=== PATIENT | female | born 1990 | race Caucasian/White ===

== ENCOUNTER → 2020-05-22 08:22 | Outpatient (CLI) | payer OTHER, SELFPAY ==
[2020-05-22] MEDS: COVID-19 VACC #1, MRNA(MOD) 100 MCG/0.5 ML VIAL IM (08:32)
== END ==
PROVIDERS: Visit Provider Internal Medicine
DX: Z23 Encounter for immunization (principal)
CPT/HCPCS: 0011A; 91301

== ENCOUNTER → 2020-06-19 08:21 | Outpatient (CLI) | payer OTHER, SELFPAY ==
[2020-06-19] MEDS: COVID-19 VACC #2, MRNA(MOD) 100 MCG/0.5 ML VIAL IM (08:28)
== END ==
PROVIDERS: PCP Family Medicine; Visit Provider Internal Medicine
DX: Z23 Encounter for immunization (principal)
CPT/HCPCS: 0012A; 91301

== ENCOUNTER → 2020-08-08 09:13 | Outpatient (CLI) | payer OTHER, SELFPAY ==
--- NOTE | 2020-08-08 09:14 | DI.MRI.S_ITS ---
PROCEDURE: MR HEAD/BRAIN WO/W CON INDICATIONS: Tinnitus, decreased sensation left lower face x3 weeks TECHNIQUE: Noncontrast sagittal T1 spin echo, axial T2 fast spin echo, axial FLAIR, axial gradient echo, axial diffusion and ADC through the brain. After IV contrast administration, 3D T1 fat saturated images were obtained in the axial plane with coronal and sagittal reformatted images generated and reviewed. COMPARISON: None. FINDINGS: Image quality: Excellent. Cranial nerves: No mass or signal abnormality within the posterior fossa brain parenchyma. Cisternal segments of the visualized cranial nerves are normal in appearance. There is no mass within the cerebellopontine angles or internal auditory canals identified. CSF spaces: Ventricles are normal in size and shape. No extra-axial fluid collections. Basal cisterns are patent. Brain: No intracranial bleeds or mass effects. No abnormal intracranial enhancement. Diffusion weighted images show no acute ischemic insults. [place]-white matter interface is intact. Brainstem is normal. Normal intravascular flow voids are present. Skull and face: Calvarial marrow signal is normal. Orbits appear normal. Sinuses: Sinuses and mastoids appear clear. IMPRESSION: Unremarkable MRI of the brain. No finding to explain symptoms. Dictated by: Drake Hull M.D. on 08/08/2020 at 9:52 Approved by: Drake Hull M.D. on 08/08/2020 at 9:55
== END ==
PROVIDERS: PCP Family Medicine; Referring Provider Family Medicine; Visit Provider Family Medicine
DX: H93.19 Tinnitus, unspecified ear (principal); R20.8 Other disturbances of skin sensation
CPT/HCPCS: 70553

== ENCOUNTER → 2021-05-18 10:52 | Outpatient (CLI) | payer OTHER, SELFPAY | PROVIDERS: PCP Family Medicine; Visit Provider Family Medicine | DX: N89.8 Other specified noninflammatory disorders of vagina (principal) | CPT/HCPCS: 87210 ==

== ENCOUNTER → 2021-07-08 08:39 | Outpatient (CLI) | payer OTHER, SELFPAY | PROVIDERS: PCP Family Medicine; Visit Provider Family Medicine | DX: N76.0 Acute vaginitis (principal) | CPT/HCPCS: 87210; 87220 ==

== ENCOUNTER → 2021-07-08 08:59 | Outpatient (CLI) | payer OTHER, SELFPAY ==
[2021-07-08 09:40] LABS: Add Manual Diff / Slide Review NO; Basophils Absolute Auto 0 /uL (0-100); Basophils Percent Auto 0.6 % (0-2); Eosinophils Absolute Auto 100 /uL (0-450); Eosinophils Percent Auto 1.6 % (2-4); Hemoglobin 12.1 g/dL (12.0-16.0); Lymphocytes Absolute Auto 1400 /uL (1100-4500); Lymphocytes Percent Auto 35.7 % (25-40); Mean Corpuscular HGB Conc 33.6 % (30-36); Mean Corpuscular Hemoglobin 30.5 PG (26-34); Mean Corpuscular Volume 90.7 fL (80-100); Monocytes Absolute Auto 300 /uL (0-900); Monocytes Percent Auto 7.5 % (3-14); Neutrophils Absolute Auto 2200 /uL (1500-7000); Neutrophils Percent Auto 54.6 % (50-75); Platelet Count 253 X10^3/uL (150-400); Red Blood Cell Count 3.97 X10^6/uL (4.0-5.2); Red Cell Distribution Width 13.5 % (11.6-14.8)
[2021-07-08 09:55] LABS: Alanine Aminotransferase 11 IU/L (<35); Albumin 4.3 g/dL (3.5-5.0); Albumin Globulin Ratio 1.3 (1.0-2.8); Alkaline Phosphatase 65 U/L (38-126); Aspartate Aminotransferase 21 IU/L (14-36); BUN Creatinine Ratio 16.7 (6-22); Bilirubin Total 0.5 mg/dL (0.2-1.3); Blood Urea Nitrogen 11 mg/dL (7-17); Calcium 9.1 mg/dL (8.4-10.2); Carbon Dioxide 25 mmol/L (22-32); Chloride 106 mmol/L (98-107); Cholesterol 149 mg/dL (140-199); Estimated Glomerular Filt Rate > 60 mL/min (>60); Globulin 3.2 g/dL (1.7-4.1); Glucose 93 mg/dL (70-100); HDL Cholesterol 62 mg/dL (40-60); HEMOLYSIS < 15 (0-50); LDL Cholesterol Calculated 72 mg/dL (<100); Potassium 4.3 mmol/L (3.4-5.1); Sodium 139 mmol/L (137-145); Total Protein 7.5 g/dL (6.3-8.2); Triglycerides 74 mg/dL (35-150)
[2021-07-08 10:11] LABS: Vitamin D 25 Hydroxy (D3) 40.5 ng/mL (30.0-100.0)
[2021-07-08 10:26] LABS: TSH w/ Reflex to FT4 1.23 uIU/mL (0.47-4.68)
[2021-07-09 06:37] LABS: Interpretation Negative (Negative)
== END ==
PROVIDERS: PCP Family Medicine; Referring Provider Family Medicine; Visit Provider Family Medicine
DX: F32.9 Major depressive disorder, single episode, unspecified (principal); N76.0 Acute vaginitis; R11.0 Nausea
CPT/HCPCS: 36415; 80053; 80061; 82306; 83013; 84443; 85025; 87210; 87220

== ENCOUNTER → 2021-07-11 15:21 | Outpatient (CLI) | payer OTHER, SELFPAY ==
[2021-07-11 18:24] LABS: Appearance Urine UA SL CLOUDY; Bilirubin Urine UA NEGATIVE (NEGATIVE); Color Urine UA YELLOW; Glucose Urine UA NEGATIVE (Negative); Ketones Urine UA NEGATIVE (NEGATIVE); Leukocyte Esterase Urine UA 1+ (NEGATIVE); Nitrite Urine UA NEGATIVE (Negative); Occult Blood Urine UA TRACE-INTACT (Negative); Protein Urine UA TRACE (Negative); Urobilinogen Urine UA 0.2 E.U./dL (0.2)
[2021-07-11 18:49] LABS: Amorphous Sediment Urine 1+; Bacteria Urine Moderate (10-30); Culture Indicated Urine Specimen Cultured; Mucus Urine 1+ (Negative); RBC Urine 0-1/HPF (0-5/HPF); Squamous Epithelial Cell Urine 10-30 /HPF (0-5/HPF); WBC Urine 10-30/HPF (0-5/HPF)
[2021-07-11 19:50] LABS: Urine N gonorrhoeae NOT DETECTED
[2021-07-11 19:53] LABS: Urine Chlamydia NOT DETECTED
== END ==
PROVIDERS: PCP Family Medicine; Referring Provider Family Medicine; Visit Provider Family Medicine
DX: N76.1 Subacute and chronic vaginitis (principal)
CPT/HCPCS: 81001; 87086; 87491; 87591

== ENCOUNTER → 2021-07-17 10:50 | Outpatient (CLI) | payer OTHER, SELFPAY | PROVIDERS: PCP Family Medicine; Visit Provider Registered Nurse Diabetes Educator | DX: N76.0 Acute vaginitis (principal); N89.8 Other specified noninflammatory disorders of vagina | CPT/HCPCS: 87210; 87220 ==

== ENCOUNTER → 2021-09-23 09:47 | Outpatient (CLI) | payer OTHER, SELFPAY ==
[2021-09-24 11:41] LABS: Candida species Negative (Negative); Gardnerella vaginalis Positive (Negative); Trichomoas vaginalis Negative (Negative)
== END ==
PROVIDERS: PCP Family Medicine; Visit Provider Obstetrics & Gynecology
DX: N89.8 Other specified noninflammatory disorders of vagina (principal); N90.89 Other specified noninflammatory disorders of vulva and perineum
CPT/HCPCS: 87102; 87255; 87480; 87510; 87660

== ENCOUNTER → 2021-11-24 09:28 | Outpatient (CLI) | payer OTHER, SELFPAY ==
--- NOTE | 2021-11-24 09:30 | DI.US.S_ITS ---
LIMITED ULTRASOUND OF RIGHT BREAST: 11/24/2021 CLINICAL: Palpable right breast lump. No prior exams were available for comparison. Real-time ultrasound of the right breast 6 o'clock region was performed. [place] scale images of the real-time examination were reviewed. No significant abnormalities were seen sonographically in the right breast in the region of the palpable abnormality. IMPRESSION: NEGATIVE There is no sonographic evidence of malignancy. Exam findings were conveyed to the patient. Patient is recently . Patient is advised to monitor for significant change. Clinical follow-up as needed. This exam was interpreted at Station ID: [id number]. Electronically Signed By: Peter Joel M.D. slc/:11/24/2021 10:41:46 letter sent: Normal Exam Ultrasound BI-RADS: 1 Negative
== END ==
PROVIDERS: PCP Family Medicine; Referring Provider Family Medicine; Visit Provider Family Medicine
DX: N63.10 Unspecified lump in the right breast, unspecified quadrant (principal); N63.20 Unspecified lump in the left breast, unspecified quadrant
CPT/HCPCS: 76642

== ENCOUNTER → 2021-12-02 09:21 | Outpatient (CLI) | payer OTHER, SELFPAY ==
--- NOTE | 2021-12-02 09:22 | DI.US.S_ITS ---
PROCEDURE: US OB <= 14 WEEKS FETUS INDICATIONS: Dating and viability OUTSIDE/PRIOR DATING DATA: Last menstrual period (LMP): 10/06/2021 LMP-based estimated date of delivery (SKIP): 07/13/2022. First dating scan (date and location): 12/02/2021 Estimated date of delivery (SKIP) from first dating scan: 07/09/2022. The calculations are made using the ultrasound SKIP of 07/09/2022. TECHNIQUE: Real-time scanning was performed of the fetus and maternal pelvic organs, with image documentation. Endovaginal scanning was also performed to better visualize the fetus and maternal ovaries. COMPARISON: None. FINDINGS: Embryo: [place]-rump length measures 2.1 cm corresponding to 8 weeks 5 days. Small perigestational sac bleed site measuring 1.1 x 1.0 x 1.2 cm Heart rate: 178 Maternal organs: Ovaries within normal limits, with left corpus luteal cyst. IMPRESSION: 1. 8 week 5 day single living IUP and small perigestational sac bleed site. We strive to produce accurate, complete, and clear reports of imaging services. To assist us in improving patient care, this report was composed using standard report templates and voice recognition software. Therefore, it may contain abnormal punctuation, insertions and/or omissions. Occasional wrong-word or sound-alike substitutions may occur. Though we review the report and make efforts to correct it, we do recommend that the report be read carefully in proper context to recognize any text inaccuracies. Dictated by: Lucien ZARAGOZA Interpreted: Mahsa Sampson MD on 12/02/2021 at 10:33 Transcribed by: ROBI on 12/02/2021 at 10:35 Approved by: Mahsa Sampson M.D. on 12/02/2021 at 12:03
== END ==
PROVIDERS: PCP Family Medicine; Referring Provider Obstetrics & Gynecology; Visit Provider Obstetrics & Gynecology
DX: O46.8X1 Other antepartum hemorrhage, first trimester (principal); Z3A.08 8 weeks gestation of pregnancy
CPT/HCPCS: 76801; 76817

== ENCOUNTER → 2021-12-05 11:27 | Outpatient (CLI) | payer OTHER, SELFPAY ==
[2021-12-05 12:00] LABS: Add Manual Diff / Slide Review NO; Basophils Absolute Auto 0 /uL (0-100); Basophils Percent Auto 0.4 % (0-2); Eosinophils Absolute Auto 0 /uL (0-450); Eosinophils Percent Auto 0.8 % (2-4); Hematocrit 33.3 % (36-46); Hemoglobin 11.3 g/dL (12.0-16.0); Lymphocytes Absolute Auto 1200 /uL (1100-4500); Lymphocytes Percent Auto 28.7 % (25-40); Mean Corpuscular HGB Conc 33.8 % (30-36); Mean Corpuscular Hemoglobin 30.8 PG (26-34); Mean Corpuscular Volume 91.2 fL (80-100); Monocytes Absolute Auto 400 /uL (0-900); Monocytes Percent Auto 8.6 % (3-14); Neutrophils Absolute Auto 2600 /uL (1500-7000); Neutrophils Percent Auto 61.5 % (50-75); Platelet Count 187 X10^3/uL (150-400); Red Blood Cell Count 3.65 X10^6/uL (4.0-5.2); White Blood Cell Count 4.3 X10^3/uL (4.5-11.0)
[2021-12-05 12:24] LABS: Appearance Urine UA CLEAR; Bilirubin Urine UA NEGATIVE (NEGATIVE); Color Urine UA YELLOW; Glucose Urine UA NEGATIVE (Negative); Ketones Urine UA NEGATIVE (NEGATIVE); Leukocyte Esterase Urine UA TRACE (NEGATIVE); Nitrite Urine UA NEGATIVE (Negative); Occult Blood Urine UA TRACE-LYSED (Negative); Protein Urine UA TRACE (Negative); Specific Gravity Urine UA 1.015 (1.000-1.035); Urobilinogen Urine UA 0.2 E.U./dL (0.2)
[2021-12-05 12:30] LABS: Bacteria Urine Occasional (0-1); Mucus Urine 2+ (Negative); RBC Urine 0-1/HPF (0-5/HPF); Squamous Epithelial Cell Urine 1-5 /HPF (0-5/HPF); WBC Urine 1-5/HPF (0-5/HPF)
[2021-12-05 12:47] LABS: Hepatitis B Surface Antigen NEGATIVE s/c (NEGATIVE); Rubella Antibody IgG 13.2 IU/mL (>15)
[2021-12-05 13:08] LABS: HIV 1 & 2 Ab/Ag 4th Gen Combo NEGATIVE (NEGATIVE); Hep C Virus Ab w/Reflex Quant NEGATIVE s/c (NEGATIVE)
[2021-12-06 06:56] LABS: RPR Screen Non Reactive (Non Reactive)
[2021-12-06 09:36] LABS: Varicella IgG Antibody 825 index (Immune >165)
== END ==
PROVIDERS: PCP Family Medicine; Referring Provider Obstetrics & Gynecology; Visit Provider Obstetrics & Gynecology
DX: Z34.81 Encounter for supervision of other normal pregnancy, first trimester (principal)
CPT/HCPCS: 36415; 80055; 81003; 81015; 86787; 86803; 86850; 86900; 86901; 87086; 87389

== ENCOUNTER → 2021-12-15 14:57 | Outpatient (CLI) | payer OTHER, SELFPAY | PROVIDERS: PCP Family Medicine; Referring Provider Obstetrics & Gynecology; Visit Provider Obstetrics & Gynecology | DX: Z34.81 Encounter for supervision of other normal pregnancy, first trimester (principal) | CPT/HCPCS: 36415 ==

== ENCOUNTER → 2022-01-30 09:04 | Outpatient (CLI) | payer OTHER, SELFPAY ==
[2022-01-30 10:12] LABS: Hemoglobin 11.5 g/dL (12.0-16.0)
[2022-02-02 16:46] LABS: AFP Value 44.1 ng/mL (.); Gest Age on Col Date 16.6 weeks (.); Insulin Dep Diabetes No (.); OSBR Risk 1IN 7137 (.); Results Report (.); Test Results *Screen Negative* (.)
== END ==
PROVIDERS: PCP Family Medicine; Referring Provider Obstetrics & Gynecology; Visit Provider Obstetrics & Gynecology
DX: Z34.82 Encounter for supervision of other normal pregnancy, second trimester (principal); Z3A.16 16 weeks gestation of pregnancy
CPT/HCPCS: 36415; 82105; 85014; 85018

== ENCOUNTER → 2022-03-06 10:08 | Outpatient (CLI) | payer OTHER, SELFPAY ==
--- NOTE | 2022-03-06 10:09 | DI.US.S_ITS ---
PROCEDURE: US OB >= 14 WEEKS FETUS INDICATIONS: 20 wk anatomy scan OUTSIDE/PRIOR DATING DATA: Last menstrual period (LMP): 10/06/2021. LMP-based estimated date of delivery (SKIP): 07/13/2022. First dating scan (date and location): 12/02/2021. Estimated date of delivery (SKIP) from first dating scan: 07/09/2022. The calculations are made using the working SKIP of 07/09/22. TECHNIQUE: Real-time scanning was performed of the fetus, with image documentation and biometric measurements. Endovaginal scanning: Not performed COMPARISON: None. FINDINGS: General: A single living intrauterine gestation is present. Presentation: Variable. Placenta: Placental position is anterior , without previa. Amniotic fluid index: 13.9 cm, normal range is 5-24 cm. Single deepest vertical pocket is 4.3 cm. heart rate: 153 beats per minute. Maternal cervical canal: 4.0 cm long. Normal lower limit is 2.5 cm. biometrics: Biparietal diameter: 21 weeks 4 days Head circumference: 21 weeks 4 days Abdominal circumference: 21 weeks 4 days Femur length: 21 weeks 5 days Clinically estimated gestational age: 22 weeks 1 day Composite gestational age from present scan: 21 weeks 4 days Estimated weight and percentile: 441 g; 22% Anatomic survey: Neuro: Ventricles are non-dilated at less than 10 mm. Cisterna magna is normal at 3-11 mm. Cerebellum is normal in size and morphology. Nuchal skin fold: Normal at less than 6 mm between 14-21 weeks gestational age. Face: Nose and lips, facial profile are normal. Spine: No evidence for spina bifida. Heart: 4-chambered heart is present, with normal ventricular outflow tracts. Diaphragm: Diaphragm is intact. Stomach: Left-sided stomach is present. Kidneys: No hydronephrosis. Normal is less than 5 mm in 2nd trimester, less than 7 mm in 3rd trimester. Cord: 3-vessel cord has orthotopic insertion. Bladder: Normal in size. Extremities: All 4 extremities identified. IMPRESSION: 1. A single living intrauterine gestation appropriate interval growth. The estimated weight is 441 g at the 22%. 2. Normal anatomic survey. We strive to produce accurate, complete, and clear reports of imaging services. To assist us in improving patient care, this report was composed using standard report templates and voice recognition software. Therefore, it may contain abnormal punctuation, insertions and/or omissions. Occasional wrong-word or sound-alike substitutions may occur. Though we review the report and make efforts to correct it, we do recommend that the report be read carefully in proper context to recognize any text inaccuracies. Dictated by: Karo Giron M.D. on 03/06/2022 at 12:06 Approved by: Karo Giron M.D. on 03/06/2022 at 12:12
== END ==
PROVIDERS: Referring Provider Obstetrics & Gynecology; Visit Provider Obstetrics & Gynecology
DX: Z34.82 Encounter for supervision of other normal pregnancy, second trimester (principal); Z3A.21 21 weeks gestation of pregnancy
CPT/HCPCS: 76811

== ENCOUNTER → 2022-04-13 13:11 | Outpatient (CLI) | payer OTHER, SELFPAY ==
[2022-04-13 14:38] LABS: Hematocrit 34.4 % (36-46); Hemoglobin 11.4 g/dL (12.0-16.0)
[2022-04-13 15:09] LABS: GTT (PREG) 1 Hour PP 50gm Dose 126 mg/dL (76-139)
== END ==
PROVIDERS: Family Provider Family Medicine; PCP Family Medicine; Referring Provider Obstetrics & Gynecology; Visit Provider Obstetrics & Gynecology
DX: Z34.82 Encounter for supervision of other normal pregnancy, second trimester (principal); Z3A.26 26 weeks gestation of pregnancy
CPT/HCPCS: 36415; 82950; 85014; 85018

== ENCOUNTER → 2022-04-17 12:06 | Outpatient (CLI) | payer OTHER, SELFPAY ==
[2022-04-17 12:38] LABS: Appearance Urine UA CLEAR; Bilirubin Urine UA NEGATIVE (NEGATIVE); Color Urine UA YELLOW; Glucose Urine UA NEGATIVE (Negative); Ketones Urine UA NEGATIVE (NEGATIVE); Leukocyte Esterase Urine UA NEGATIVE (NEGATIVE); Nitrite Urine UA NEGATIVE (Negative); Occult Blood Urine UA NEGATIVE (Negative); Protein Urine UA NEGATIVE (Negative); Specific Gravity Urine UA <=1.005 (1.000-1.035); Urobilinogen Urine UA 0.2 E.U./dL (0.2)
[2022-04-17 12:46] LABS: RBC Urine None Seen (0-5/HPF); WBC Urine None Seen (0-5/HPF)
[2022-04-17 12:47] LABS: Amorphous Sediment Urine 1+; Bacteria Urine None Seen; Culture Indicated Urine Cult Not Indicated
== END ==
PROVIDERS: Family Provider Family Medicine; PCP Family Medicine; Referring Provider Obstetrics & Gynecology; Visit Provider Obstetrics & Gynecology
DX: R39.9 Unspecified symptoms and signs involving the genitourinary system (principal)
CPT/HCPCS: 81001

== ENCOUNTER → 2022-05-05 15:28 | Outpatient (CLI) | payer OTHER, SELFPAY ==
[2022-05-07 12:56] LABS: Candida species Negative (Negative); Gardnerella vaginalis Positive (Negative); Trichomoas vaginalis Negative (Negative)
== END ==
PROVIDERS: Family Provider Family Medicine; PCP Family Medicine; Visit Provider Specialist
DX: Z34.81 Encounter for supervision of other normal pregnancy, first trimester (principal); B37.31 Acute candidiasis of vulva and vagina
CPT/HCPCS: 87480; 87510; 87660

== ENCOUNTER → 2022-06-17 09:42 | Outpatient (CLI) | payer OTHER, SELFPAY ==
[2022-06-18 12:04] LABS: Strep Grp B PCR POS for Grp B Strep
== END ==
PROVIDERS: Family Provider Family Medicine; PCP Family Medicine; Visit Provider Obstetrics & Gynecology
DX: Z34.83 Encounter for supervision of other normal pregnancy, third trimester (principal); Z3A.36 36 weeks gestation of pregnancy
CPT/HCPCS: 87653

== ENCOUNTER 2022-06-22 09:00 | Outpatient (RCR) | payer OTHER, SELFPAY ==
--- NOTE | 2022-05-04 12:14 | PT.OIE ---
Current Diagnoses Sacrococcygeal disorders, not elsewhere classified (05/04/22) Encounter for supervision of other normal , second trimester (05/04/22) Past Medical History (Last Updated 02/01/22 @ 18:27 by Chyna Anne MD) Anemia (~2001) Cardiac arrhythmia (~2014) Chicken pox (~1992) Decreased sensation Depression (~2019) Eczema (~1987) Fractures (~1996) Migraines (~2005) Ovarian cyst (~2003) Painful menstrual periods (~2002) depression Tinnitus Vaginitis Past Surgical History (Last Reviewed 01/01/22 @ 14:26 by Chyna Anne MD) Anesthesia H/O cardiac radiofrequency ablation [place] teeth extracted Visit Care Team Role Provider Type Deangelo Ortega MD Family Provider Physician Primary Care Provider Specialty: Family Practice Address: [address] [place] [address] Email: [email or web address] Shelbie Joyce PA-C Attending Provider Advanced Orthodontist Vice President Referring Provider Specialty: Medical Address: [address] [place] [address], [address], [place], [address] Phone: Fax: Email: Physical Therapy Initial Evaluation PT-OP-A Visit Information Start: 05/04/22 08:13 Freq: Status: Active Protocol: Document 05/04/22 11:23 LRN (Rec: 05/04/22 12:39 LRN [id number]) Out-Patient Physical Therapy Visit Information Visit Information Visit Type Initial Evaluation Visit Start Time 11:23 Visit Stop Time 12:05 Total Visit Minutes 42 Visit Number 1 Evaluation Information Evaluation Date 05/04/22 Precautions Precautions Heart ablation for tacchydardia - 2018. PT-OP-B Current Condition Start: 05/04/22 08:13 Freq: Status: Active Protocol: Document 05/04/22 11:23 LRN (Rec: 05/04/22 12:39 LRN [id number]) Current Condition History of Current Condition Onset Date 02/2022 Current Complaints [place] LBP L>R w/nightly LE ms cramps. Having trouble sitting on floor. History of Current Condition Pt is 30 weeks . Experiencing pain in the low back (L>R) radiating up the back when moving rolling from one side to the other in bed. She has cramps every night in the bethany lateral hips, hamstrings, gastocs, ankle ( causing IV) and toes curling ( R foot cramps every night and L foot cramps every other night and sometimes at the same time). She has had nightly L sided back pain since Feb, now on both sides. 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 Developmental History Developmental History Works from home and 1/2 days goes barefoot. Treatment Goals Patient/Caregiver Goals Pt goal is to have less pain. Pt agreeable after discussion to education in posturing and transfers and learning exercises and HEP for self care. Personal Factors Other Personal Factors That May Effect Has 2.5 year old toddler. Therapy/Recovery Works from home and doesn't wear shoes. PT-OP-C Subjective Start: 05/04/22 08:13 Freq: Status: Active Protocol: Document 05/04/22 11:23 LRN (Rec: 05/04/22 12:39 LRN [id number]) OP-PT Pain Assessment Pain Assessment Grid Paper Pain Assessment Grid Completed Yes Location [place] PSIS Pain Location Details PSIS Intensity 8 Scale Used Numeric (0 - 10) Description Aching,Dull,Sharp,Shooting, Stabbing Description- Other Shoots up back Frequency Constant Pain Duration L constant, R intermittent. Radiating Location Up spine Pain Aggravating Factors Changing Position,Activity Pain Alleviating Factors Heat PT-OP-J Posture/Palpation/Skin Start: 05/04/22 08:13 Freq: Status: Active Protocol: Document 05/04/22 11:23 LRN (Rec: 05/04/22 12:39 LRN [id number]) Posture Evaluation Position Standing Head/C-Spine Posture Forward Head T-Spine Posture Flattened L-Spine Posture Increased Lordosis Foot Arch (L) Medium Arch,(R) Medium Arch Comments Posture Comments C curve of upper T/S with apex on L. Umbilicus not shifted horizontally. Palpation Assessment Location Ischial Tuberosity Palpation Location Ischial Tuberosity in prone on pillow Palpation Details L Ischial tuberosity is low and posterior in prone on pillow. Sacrum Palpation Location Sacral sulcus and SAURABH Palpation Findings Tenderness Palpation Details Sacrum in L rotation Sacral Sulcus elevated on left PSIS Palpation Location L PSIS is low on pillow Palpation Findings Tenderness PT-OP-K Range of Motion Start: 05/04/22 08:13 Freq: Status: Active Protocol: Document 05/04/22 11:23 LRN (Rec: 05/04/22 12:39 LRN [id number]) Lumbar Spine Range of Motion Lumbar Spine Active Degrees Testing Position Standing Flexion 85 Extension 3 Comments Flex is 85 deg's with 40 deg's hip flexion Ext is 0 deg's with 3 deg's hip ext. Tightness with R SB PT-OP-L Special Tests Start: 05/04/22 08:13 Freq: Status: Active Protocol: Document 05/04/22 11:23 LRN (Rec: 05/04/22 12:39 LRN [id number]) Special Tests Lumbar Spine Special Tests Slump Test Results + left, - right Comments No pain with neck ext/knee ext , but pain with added ankle DF . PT-OP-M Strength Start: 05/04/22 08:13 Freq: Status: Active Protocol: Document 05/04/22 11:23 LRN (Rec: 05/04/22 12:39 LRN [id number]) Trunk Strength Trunk Manual Muscle Testing Flexion 2 Poor Hip Strength Hip Manual Muscle Testing Right External Rotation 3 Fair Internal Rotation 3+ Fair+ Left External Rotation 3 Fair Internal Rotation 3+ Fair+ PT-OP-Q Treatments Start: 05/04/22 08:13 Freq: Status: Active Protocol: Document 05/04/22 11:23 LRN (Rec: 05/04/22 12:39 LRN [id number]) Therapeutic Exercises Other Exercises Child's Pose Other Exercise Name Child's pose Reps/Minutes 2' Hands/knees TA Other Exercise Name TA tightening Reps/Minutes 3' Therapeutic Activity Therapeutic Activity Rolling in bed Name Rolling side to side Reps/Minutes x 2 Comments Much cuing and phys cuing to TA during rolling. Sit<>Supine Name Sit<>supine Reps/Minutes x 2 Comments Phys & v cuing needed for proper mechanics and TA tightening. Self-Care/Home Management Treatment Education Patient Education Pain Management Other Education Discussed results of evaluation, goals, and plan of care (POC). Pt agreeable to goals and POC. Advised pt to use only cryotherapy for LBP due to . Briefly discussed direction of stretch to LE's when having muscle cramps. Activities Self-Care/Home Management Activities I/S pt in hands/knees TA & proper rolling in bed with TA tightening before moving. PT-OP-T Assessment and Plan Start: 05/04/22 08:13 Freq: Status: Active Protocol: Document 05/04/22 11:23 LRN (Rec: 05/04/22 12:39 LRN [id number]) Physical Therapy Assessment Rehab Potential Rehabilitation Potential Good Evaluation Complexity Number of Personal Factors/Comorbidities 1-2 Number of Body Systems Impaired 4 or More Clinical Presentation at Evaluation Evolving Impairments Impairments Activity Tolerance,Functional Mobility,Pain,Posture,ROM, Strength,Transfers Goals Three Impairment Postural changes Impairment Fwd head, flattened T/S, increased lordosis, decreased foot arch. Short Term Goal (STG) Pt will be educated in postural changes due to with recommendations for self corrections. STG Duration 05/12/22 Fpc Goal (LTG) Decrease severity of LE muscle cramp onset during the nighttime with improved posture of LB/pelvis. LTG Duration 05/26/22 Two Impairment Decreased core/pelvic strength Impairment Pt shows no automatic tightening of TA with transfers. Short Term Goal (STG) Pt will be able to demonstrate improved awareness of core stabilization with automatic TA contraction with posturing and transfers onto plinth and with rolling side to side. STG Duration 05/18 Fpc Goal (LTG) Decrease LBP with improved core/pelvic strength LTG Duration 05/26/22 One Impairment Lacks appropriate self care HEP Short Term Goal (STG) Educate pt in use of cryotherapy for pain management. STG Duration 05/06/22 Fpc Goal (LTG) Educate pt in self care HEP ex 's of neck elongation, TA strengthening, and education in proper footwear for pre- and post- postural care. LTG Duration 05/26/22 Assessment Summary Assessment Pt is a 32 yo female at 30 wks with bilateral SIJ pain (L>R). Pt is a 32 yo female with possilbe posterior rotated or anterior with AP shear of L innominate & L sacral rotation. Pt has weakness of abdominals and shows poor TA strength. She has weakness of her hips/core, with onset of muscle cramps every night that is interrupting her sleep. Pt had onset of muscle cramps in the hips with MMT of rotators in sitting; therefore deferred further testing due to poor tolerance. Pt moves on plinth (demonstrating her movement at nighttime) without engaging her core ms. She does not tolerate supine positioning; therefore I was not able to perform provocation tests to identify SIJ dysfunction. She did demonstrate a + slump test; therefore has neural involvement but unable to determine to what extent due to her positioning limitations . The pt was very receptive to bed mobility training of rolling in bed, and core strengthening (hands/knees TA tightening). The pt will benefit from skilled physical therapy to improve pelvic positioning, strengthen core and stabilize, improve body mechanics (transfers & ADLs) and address postural changes and educate in self care HEP. The pt would benefit from skilled physical therapy post , when appropriate to return to physical therapy, post- to address postural changes, loss of core strength, and possible SIJ dysfunctions, as well as education in body mechanics. Physical Therapy Plan Frequency and Duration Frequency of Treatment 1x/Week Plan of Care Start Date 05/04/22 Plan of Care End Date 05/26/22 Therapeutic Interventions Therapeutic Interventions Home Exercise Program,Joint Mobilizations,Manual Therapy, Patient/Caregiver Education, Self-Care/Home Management,Soft Tissue Mobilization,Taping, Therapeutic Activities, Therapeutic Exercises Modalities Cold Pack/Ice Massage Next Visit Focus/Plan Next Note Type Treatment Note Next Visit Plan Improve pelvic positioning, strengthen core and stabilize core/pelvis, improve body mechanics (transfers & ADLs) and address postural changes, and LE neural tension, and educate in self care HEP. Teach post pelvic stabilization. Educate in use of ice for pain management.
--- NOTE | 2022-05-04 12:15 | PT.OPPOC ---
Physical, Occupational & Speech Therapy At [facility] Current Diagnoses Sacrococcygeal disorders, not elsewhere classified (05/04/22) Encounter for supervision of other normal , second trimester (05/04/22) Visit Care Team Role Provider Type Deangelo Ortega MD Family Provider Physician Primary Care Provider Specialty: Family Practice Address: [address] [place] [address], [address] Email: [email or web address] Shelbie Joyce PA-C Attending Provider Advanced Language Therapist Referring Provider Specialty: Medical Address: [address] [place] [address], [address], [place], [address] Phone: Fax: Email: Plan Of Care PT-OP-T Assessment and Plan Start: 05/04/22 08:13 Freq: Status: Active Protocol: Document 05/04/22 11:23 LRN (Rec: 05/04/22 12:39 LRN [id number]) Physical Therapy Assessment Rehab Potential Rehabilitation Potential Good Evaluation Complexity Number of Personal Factors/Comorbidities 1-2 Number of Body Systems Impaired 4 or More Clinical Presentation at Evaluation Evolving Impairments Impairments Activity Tolerance,Functional Mobility,Pain,Posture,ROM, Strength,Transfers Goals Three Impairment Postural changes Impairment Fwd head, flattened T/S, increased lordosis, decreased foot arch. Short Term Goal (STG) Pt will be educated in postural changes due to with recommendations for self corrections. STG Duration 05/12/22 Detention Goal (LTG) Decrease severity of LE muscle cramp onset during the nighttime with improved posture of LB/pelvis. LTG Duration 05/26/22 Two Impairment Decreased core/pelvic strength Impairment Pt shows no automatic tightening of TA with transfers. Short Term Goal (STG) Pt will be able to demonstrate improved awareness of core stabilization with automatic TA contraction with posturing and transfers onto plinth and with rolling side to side. STG Duration 05/18 Detention Goal (LTG) Decrease LBP with improved core/pelvic strength LTG Duration 05/26/22 One Impairment Lacks appropriate self care HEP Short Term Goal (STG) Educate pt in use of cryotherapy for pain management. STG Duration 05/06/22 Detention Goal (LTG) Educate pt in self care HEP ex 's of neck elongation, TA strengthening, and education in proper footwear for pre- and post- postural care. LTG Duration 05/26/22 Assessment Summary Assessment Pt is a 32 yo female at 30 wks with bilateral SIJ pain (L>R). Pt is a 32 yo female with possilbe posterior rotated or anterior with AP shear of L innominate & L sacral rotation. Pt has weakness of abdominals and shows poor TA strength. She has weakness of her hips/core, with onset of muscle cramps every night that is interrupting her sleep. Pt had onset of muscle cramps in the hips with MMT of rotators in sitting; therefore deferred further testing due to poor tolerance. Pt moves on plinth (demonstrating her movement at nighttime) without engaging her core ms. She does not tolerate supine positioning; therefore I was not able to perform provocation tests to identify SIJ dysfunction. She did demonstrate a + slump test; therefore has neural involvement but unable to determine to what extent due to her positioning limitations . The pt was very receptive to bed mobility training of rolling in bed, and core strengthening (hands/knees TA tightening). The pt will benefit from skilled physical therapy to improve pelvic positioning, strengthen core and stabilize, improve body mechanics (transfers & ADLs) and address postural changes and educate in self care HEP. The pt would benefit from skilled physical therapy post , when appropriate to return to physical therapy, post- to address postural changes, loss of core strength, and possible SIJ dysfunctions, as well as education in body mechanics. Physical Therapy Plan Frequency and Duration Frequency of Treatment 1x/Week Plan of Care Start Date 05/04/22 Plan of Care End Date 05/26/22 Therapeutic Interventions Therapeutic Interventions Home Exercise Program,Joint Mobilizations,Manual Therapy, Patient/Caregiver Education, Self-Care/Home Management,Soft Tissue Mobilization,Taping, Therapeutic Activities, Therapeutic Exercises Modalities Cold Pack/Ice Massage Next Visit Focus/Plan Next Note Type Treatment Note Next Visit Plan Improve pelvic positioning, strengthen core and stabilize core/pelvis, improve body mechanics (transfers & ADLs) and address postural changes, and LE neural tension, and educate in self care HEP. Teach post pelvic stabilization. Educate in use of ice for pain management. Plan of Care Dates Plan of Care Start Date 05/04/22 Plan of Care End Date 05/26/22 Electronically Signed by: Christina Alonzo, PT 05/05/22 [id number] If you are in agreement with this Plan of Care, please return a signed and dated copy. I have reviewed this Plan of Care and certify that the skilled therapy services above are required to meet the patient?s needs. Physician Signature Date Printed Name and Credentials Clinical Instructor Signature Printed Name and Credentials
--- NOTE | 2022-05-07 11:59 | PT.OTN ---
Current Diagnoses Sacrococcygeal disorders, not elsewhere classified (05/06/22) Encounter for supervision of other normal , second trimester (05/06/22) Physical Therapy Treatment Note PT-OP-A Visit Information Start: 05/04/22 08:13 Freq: Status: Active Protocol: Document 05/06/22 13:00 AMB (Rec: 05/06/22 13:52 AMB [id number]) Out-Patient Physical Therapy Visit Information Visit Information Visit Type Treatment Note Visit Start Time 13:00 Visit Stop Time 13:45 Total Visit Minutes 45 Visit Number 2 PT-OP-B Current Condition Start: 05/04/22 08:13 Freq: Status: Active Protocol: Document 05/04/22 11:23 LRN (Rec: 05/04/22 12:39 LRN [id number]) Current Condition History of Current Condition Onset Date 02/2022 Current Complaints Iban LBP L>R w/nightly LE ms cramps. Having trouble sitting on floor. History of Current Condition Pt is 30 weeks . Experiencing pain in the low back (L>R) radiating up the back when moving rolling from one side to the other in bed. She has cramps every night in the iban lateral hips, hamstrings, gastocs, ankle ( causing IV) and toes curling ( R foot cramps every night and L foot cramps every other night and sometimes at the same time). She has had nightly L sided back pain since Feb, now on both sides. 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 Developmental History Developmental History Works from home and 1/2 days goes barefoot. Treatment Goals Patient/Caregiver Goals Pt goal is to have less pain. Pt agreeable after discussion to education in posturing and transfers and learning exercises and HEP for self care. Personal Factors Other Personal Factors That May Effect Has 2.5 year old toddler. Therapy/Recovery Works from home and doesn't wear shoes. PT-OP-C Subjective Start: 05/04/22 08:13 Freq: Status: Active Protocol: Document 05/06/22 13:00 AMB (Rec: 05/06/22 13:52 AMB [id number]) OP-PT Subjective Patient Comments Patient Comments Pt reports she had a lot of pain after last visit, yesterday was a very bad day, her had to assist her up from the floor after playing with her son because she couldn't get up due to the pain. PT-OP-J Posture/Palpation/Skin Start: 05/04/22 08:13 Freq: Status: Active Protocol: Document 05/04/22 11:23 LRN (Rec: 05/04/22 12:39 LRN [id number]) Posture Evaluation Position Standing Head/C-Spine Posture Forward Head T-Spine Posture Flattened L-Spine Posture Increased Lordosis Foot Arch (L) Medium Arch,(R) Medium Arch Comments Posture Comments C curve of upper T/S with apex on L. Umbilicus not shifted horizontally. Palpation Assessment Location Ischial Tuberosity Palpation Location Ischial Tuberosity in prone on pillow Palpation Details L Ischial tuberosity is low and posterior in prone on pillow. Sacrum Palpation Location Sacral sulcus and SAURABH Palpation Findings Tenderness Palpation Details Sacrum in L rotation Sacral Sulcus elevated on left PSIS Palpation Location L PSIS is low on pillow Palpation Findings Tenderness PT-OP-K Range of Motion Start: 05/04/22 08:13 Freq: Status: Active Protocol: Document 05/04/22 11:23 LRN (Rec: 05/04/22 12:39 LRN [id number]) Lumbar Spine Range of Motion Lumbar Spine Active Degrees Testing Position Standing Flexion 85 Extension 3 Comments Flex is 85 deg's with 40 deg's hip flexion Ext is 0 deg's with 3 deg's hip ext. Tightness with R SB PT-OP-L Special Tests Start: 05/04/22 08:13 Freq: Status: Active Protocol: Document 05/04/22 11:23 LRN (Rec: 05/04/22 12:39 LRN [id number]) Special Tests Lumbar Spine Special Tests Slump Test Results + left, - right Comments No pain with neck ext/knee ext , but pain with added ankle DF . PT-OP-M Strength Start: 05/04/22 08:13 Freq: Status: Active Protocol: Document 05/04/22 11:23 LRN (Rec: 05/04/22 12:39 LRN [id number]) Trunk Strength Trunk Manual Muscle Testing Flexion 2 Poor Hip Strength Hip Manual Muscle Testing Right External Rotation 3 Fair Internal Rotation 3+ Fair+ Left External Rotation 3 Fair Internal Rotation 3+ Fair+ PT-OP-Q Treatments Start: 05/04/22 08:13 Freq: Status: Active Protocol: Document 05/06/22 13:00 AMB (Rec: 05/07/22 11:56 AMB [id number]) Therapeutic Exercises Other Exercises quaderuped UE flex Reps/Minutes 2x10 Comments cue TA-- challenging Child's Pose Other Exercise Name Child's pose Reps/Minutes 2' Hands/knees TA Other Exercise Name TA tightening Reps/Minutes 3' Manual Therapy Treatment Soft Tissue Mobilization L piriformis Mobilization Type Myofascial Release Intensity/Depth Moderate Body Position Sidelying Comments very tender Joint Mobilizations MET for SI rotation Joint in sidelying LAUGHLIN provided Manual Traction long axis Body Position Sidelying Reps/Duration 30x4 Taping sacrum Type of Tape Kinesio Tape Comments star for stability PT-OP-T Assessment and Plan Start: 05/04/22 08:13 Freq: Status: Active Protocol: Document 05/06/22 13:00 AMB (Rec: 05/06/22 13:52 AMB [id number]) Physical Therapy Assessment Goals Three Impairment Postural changes Impairment Fwd head, flattened T/S, increased lordosis, decreased foot arch. Short Term Goal (STG) Pt will be educated in postural changes due to with recommendations for self corrections. STG Duration 05/12/22 Correction Goal (LTG) Decrease severity of LE muscle cramp onset during the nighttime with improved posture of LB/pelvis. LTG Duration 05/26/22 Two Impairment Decreased core/pelvic strength Impairment Pt shows no automatic tightening of TA with transfers. Short Term Goal (STG) Pt will be able to demonstrate improved awareness of core stabilization with automatic TA contraction with posturing and transfers onto plinth and with rolling side to side. STG Duration 05/18 Correction Goal (LTG) Decrease LBP with improved core/pelvic strength LTG Duration 05/26/22 One Impairment Lacks appropriate self care HEP Short Term Goal (STG) Educate pt in use of cryotherapy for pain management. STG Duration 05/06/22 Correction Goal (LTG) Educate pt in self care HEP ex 's of neck elongation, TA strengthening, and education in proper footwear for pre- and post- postural care. LTG Duration 05/26/22 Assessment Summary Assessment Juan is having considerable pain. Lost her belly band, encouraged to find. Did well in quadruped, significant pain /tenderness over L piriformis. Started appt with R sided pain, that subsided with tx today, but L was still painful . Encouraged pt in cat cow, TA in quadruped with UE ext, and can perform gentle leg pull in sidelying. Physical Therapy Plan Frequency and Duration Frequency of Treatment 1x/Week Plan of Care Start Date 05/04/22 Plan of Care End Date 05/26/22 Therapeutic Interventions Therapeutic Interventions Home Exercise Program,Joint Mobilizations,Manual Therapy, Patient/Caregiver Education, Self-Care/Home Management,Soft Tissue Mobilization,Taping, Therapeutic Activities, Therapeutic Exercises Modalities Cold Pack/Ice Massage Next Visit Focus/Plan Next Note Type Treatment Note Next Visit Plan Follow up on kinesiotape tolerance. Improve pelvic positioning, strengthen core and stabilize core/pelvis, improve body mechanics (transfers & ADLs) and address postural changes, and LE neural tension, and educate in self care HEP. Teach post pelvic stabilization. Educate in use of ice for pain management.
--- NOTE | 2022-05-12 21:37 | PT.OTN ---
Current Diagnoses Sacrococcygeal disorders, not elsewhere classified (05/12/22) Encounter for supervision of other normal , second trimester (05/12/22) Physical Therapy Treatment Note PT-OP-A Visit Information Start: 05/04/22 08:13 Freq: Status: Active Protocol: Document 05/12/22 21:19 AMB (Rec: 05/12/22 21:37 AMB [id number]) Out-Patient Physical Therapy Visit Information Visit Information Visit Type Treatment Note Visit Start Time 13:45 Visit Stop Time 14:30 Total Visit Minutes 45 Visit Number 3 PT-OP-B Current Condition Start: 05/04/22 08:13 Freq: Status: Active Protocol: Document 05/04/22 11:23 LRN (Rec: 05/04/22 12:39 LRN [id number]) Current Condition History of Current Condition Onset Date 02/2022 Current Complaints Bethany LBP L>R w/nightly LE ms cramps. Having trouble sitting on floor. History of Current Condition Pt is 30 weeks . Experiencing pain in the low back (L>R) radiating up the back when moving rolling from one side to the other in bed. She has cramps every night in the bethany lateral hips, hamstrings, gastocs, ankle ( causing IV) and toes curling ( R foot cramps every night and L foot cramps every other night and sometimes at the same time). She has had nightly L sided back pain since Feb, now on both sides. 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 Developmental History Developmental History Works from home and 1/2 days goes barefoot. Treatment Goals Patient/Caregiver Goals Pt goal is to have less pain. Pt agreeable after discussion to education in posturing and transfers and learning exercises and HEP for self care. Personal Factors Other Personal Factors That May Effect Has 2.5 year old toddler. Therapy/Recovery Works from home and doesn't wear shoes. PT-OP-C Subjective Start: 05/04/22 08:13 Freq: Status: Active Protocol: Document 05/12/22 21:19 AMB (Rec: 05/12/22 21:37 AMB [id number]) OP-PT Subjective Patient Comments Patient Comments Lizanne has more pain on the L today, felt better after last visit, hasn't had as much cramping, continues to have pain especially at night PT-OP-J Posture/Palpation/Skin Start: 05/04/22 08:13 Freq: Status: Active Protocol: Document 05/04/22 11:23 LRN (Rec: 05/04/22 12:39 LRN [id number]) Posture Evaluation Position Standing Head/C-Spine Posture Forward Head T-Spine Posture Flattened L-Spine Posture Increased Lordosis Foot Arch (L) Medium Arch,(R) Medium Arch Comments Posture Comments C curve of upper T/S with apex on L. Umbilicus not shifted horizontally. Palpation Assessment Location Ischial Tuberosity Palpation Location Ischial Tuberosity in prone on pillow Palpation Details L Ischial tuberosity is low and posterior in prone on pillow. Sacrum Palpation Location Sacral sulcus and SAURABH Palpation Findings Tenderness Palpation Details Sacrum in L rotation Sacral Sulcus elevated on left PSIS Palpation Location L PSIS is low on pillow Palpation Findings Tenderness PT-OP-K Range of Motion Start: 05/04/22 08:13 Freq: Status: Active Protocol: Document 05/04/22 11:23 LRN (Rec: 05/04/22 12:39 LRN [id number]) Lumbar Spine Range of Motion Lumbar Spine Active Degrees Testing Position Standing Flexion 85 Extension 3 Comments Flex is 85 deg's with 40 deg's hip flexion Ext is 0 deg's with 3 deg's hip ext. Tightness with R SB PT-OP-L Special Tests Start: 05/04/22 08:13 Freq: Status: Active Protocol: Document 05/04/22 11:23 LRN (Rec: 05/04/22 12:39 LRN [id number]) Special Tests Lumbar Spine Special Tests Slump Test Results + left, - right Comments No pain with neck ext/knee ext , but pain with added ankle DF . PT-OP-M Strength Start: 05/04/22 08:13 Freq: Status: Active Protocol: Document 05/04/22 11:23 LRN (Rec: 05/04/22 12:39 LRN [id number]) Trunk Strength Trunk Manual Muscle Testing Flexion 2 Poor Hip Strength Hip Manual Muscle Testing Right External Rotation 3 Fair Internal Rotation 3+ Fair+ Left External Rotation 3 Fair Internal Rotation 3+ Fair+ PT-OP-Q Treatments Start: 05/04/22 08:13 Freq: Status: Active Protocol: Document 05/12/22 21:19 AMB (Rec: 05/12/22 21:37 AMB [id number]) Manual Therapy Treatment Soft Tissue Mobilization L piriformis Mobilization Type Myofascial Release Intensity/Depth Moderate Body Position Sidelying Comments very tender Joint Mobilizations sacrum Joint PA [id number] Manual Traction long axis Body Position Sidelying Reps/Duration 30x4 Taping sacrum Type of Tape Kinesio Tape Comments star for stability PT-OP-T Assessment and Plan Start: 05/04/22 08:13 Freq: Status: Active Protocol: Document 05/12/22 21:19 AMB (Rec: 05/12/22 21:37 AMB [id number]) Physical Therapy Assessment Goals Three Impairment Postural changes Impairment Fwd head, flattened T/S, increased lordosis, decreased foot arch. Short Term Goal (STG) Pt will be educated in postural changes due to with recommendations for self corrections. STG Duration 05/12/22 Water Gas Operator Goal (LTG) Decrease severity of LE muscle cramp onset during the nighttime with improved posture of LB/pelvis. LTG Duration 05/26/22 Two Impairment Decreased core/pelvic strength Impairment Pt shows no automatic tightening of TA with transfers. Short Term Goal (STG) Pt will be able to demonstrate improved awareness of core stabilization with automatic TA contraction with posturing and transfers onto plinth and with rolling side to side. STG Duration 05/18 Longterm Goal (LTG) Decrease LBP with improved core/pelvic strength LTG Duration 05/26/22 One Impairment Lacks appropriate self care HEP Short Term Goal (STG) Educate pt in use of cryotherapy for pain management. STG Duration 05/06/22 Water Gas Operator Goal (LTG) Educate pt in self care HEP ex 's of neck elongation, TA strengthening, and education in proper footwear for pre- and post- postural care. LTG Duration 05/26/22 Assessment Summary Assessment Juan'chayo pain was improved after PT, improved lumbar ROM. Did encourage in thread the needle for home. Physical Therapy Plan Frequency and Duration Frequency of Treatment 1x/Week Plan of Care Start Date 05/04/22 Plan of Care End Date 05/26/22 Next Visit Focus/Plan Next Note Type Treatment Note Next Visit Plan Follow up on kinesiotape tolerance. Improve pelvic positioning, strengthen core and stabilize core/pelvis, improve body mechanics (transfers & ADLs) and address postural changes, and LE neural tension, and educate in self care HEP. Teach post pelvic stabilization. Educate in use of ice for pain management.
--- NOTE | 2022-05-15 15:35 | PT.OTN ---
Current Diagnoses Sacrococcygeal disorders, not elsewhere classified (05/15/22) Encounter for supervision of other normal , second trimester (05/15/22) Physical Therapy Treatment Note PT-OP-A Visit Information Start: 05/04/22 08:13 Freq: Status: Active Protocol: Document 05/15/22 14:35 AMB (Rec: 05/15/22 15:35 AMB [id number]) Out-Patient Physical Therapy Visit Information Visit Information Visit Type Treatment Note Visit Start Time 14:30 Visit Stop Time 15:25 Total Visit Minutes 55 Visit Number 4 PT-OP-B Current Condition Start: 05/04/22 08:13 Freq: Status: Active Protocol: Document 05/04/22 11:23 LRN (Rec: 05/04/22 12:39 LRN [id number]) Current Condition History of Current Condition Onset Date 02/2022 Current Complaints Iban LBP L>R w/nightly LE ms cramps. Having trouble sitting on floor. History of Current Condition Pt is 30 weeks . Experiencing pain in the low back (L>R) radiating up the back when moving rolling from one side to the other in bed. She has cramps every night in the iban lateral hips, hamstrings, gastocs, ankle ( causing IV) and toes curling ( R foot cramps every night and L foot cramps every other night and sometimes at the same time). She has had nightly L sided back pain since Feb, now on both sides. 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 Developmental History Developmental History Works from home and 1/2 days goes barefoot. Treatment Goals Patient/Caregiver Goals Pt goal is to have less pain. Pt agreeable after discussion to education in posturing and transfers and learning exercises and HEP for self care. Personal Factors Other Personal Factors That May Effect Has 2.5 year old toddler. Therapy/Recovery Works from home and doesn't wear shoes. PT-OP-C Subjective Start: 05/04/22 08:13 Freq: Status: Active Protocol: Document 05/15/22 14:35 AMB (Rec: 05/15/22 15:35 AMB [id number]) OP-PT Subjective Patient Comments Patient Comments Worked on reorganizing the garage and then Wednesday was in more pain. Right his is more irritated. PT-OP-J Posture/Palpation/Skin Start: 05/04/22 08:13 Freq: Status: Active Protocol: Document 05/04/22 11:23 LRN (Rec: 05/04/22 12:39 LRN [id number]) Posture Evaluation Position Standing Head/C-Spine Posture Forward Head T-Spine Posture Flattened L-Spine Posture Increased Lordosis Foot Arch (L) Medium Arch,(R) Medium Arch Comments Posture Comments C curve of upper T/S with apex on L. Umbilicus not shifted horizontally. Palpation Assessment Location Ischial Tuberosity Palpation Location Ischial Tuberosity in prone on pillow Palpation Details L Ischial tuberosity is low and posterior in prone on pillow. Sacrum Palpation Location Sacral sulcus and SAURABH Palpation Findings Tenderness Palpation Details Sacrum in L rotation Sacral Sulcus elevated on left PSIS Palpation Location L PSIS is low on pillow Palpation Findings Tenderness PT-OP-K Range of Motion Start: 05/04/22 08:13 Freq: Status: Active Protocol: Document 05/04/22 11:23 LRN (Rec: 05/04/22 12:39 LRN [id number]) Lumbar Spine Range of Motion Lumbar Spine Active Degrees Testing Position Standing Flexion 85 Extension 3 Comments Flex is 85 deg's with 40 deg's hip flexion Ext is 0 deg's with 3 deg's hip ext. Tightness with R SB PT-OP-L Special Tests Start: 05/04/22 08:13 Freq: Status: Active Protocol: Document 05/04/22 11:23 LRN (Rec: 05/04/22 12:39 LRN [id number]) Special Tests Lumbar Spine Special Tests Slump Test Results + left, - right Comments No pain with neck ext/knee ext , but pain with added ankle DF . PT-OP-M Strength Start: 05/04/22 08:13 Freq: Status: Active Protocol: Document 05/04/22 11:23 LRN (Rec: 05/04/22 12:39 LRN [id number]) Trunk Strength Trunk Manual Muscle Testing Flexion 2 Poor Hip Strength Hip Manual Muscle Testing Right External Rotation 3 Fair Internal Rotation 3+ Fair+ Left External Rotation 3 Fair Internal Rotation 3+ Fair+ PT-OP-Q Treatments Start: 05/04/22 08:13 Freq: Status: Active Protocol: Document 05/15/22 14:35 AMB (Rec: 05/15/22 15:35 AMB [id number]) Therapeutic Exercises Sidelying Exercises clamshell Reps/Minutes 2x10 Other Exercises quadruped hip wag Reps/Minutes 10 Child's Pose Other Exercise Name Child's pose Reps/Minutes 2' Hands/knees TA Other Exercise Name TA tightening Reps/Minutes 3' Manual Therapy Treatment Soft Tissue Mobilization lumbar paraspinals Body Location MFR low lumbar PT-OP-R Modalities Start: 05/04/22 08:13 Freq: Status: Active Protocol: Document 05/15/22 14:35 AMB (Rec: 05/15/22 15:35 AMB [id number]) Electric Stimulation Electric Stimulation Interferential Current (IFC) Body Location low back Duration (Minutes) 10 Comments prone on pillow PT-OP-T Assessment and Plan Start: 05/04/22 08:13 Freq: Status: Active Protocol: Document 05/15/22 14:35 AMB (Rec: 05/15/22 15:35 AMB [id number]) Physical Therapy Assessment Goals Three Impairment Postural changes Impairment Fwd head, flattened T/S, increased lordosis, decreased foot arch. Short Term Goal (STG) Pt will be educated in postural changes due to with recommendations for self corrections. STG Duration 05/12/22 Fpc Goal (LTG) Decrease severity of LE muscle cramp onset during the nighttime with improved posture of LB/pelvis. LTG Duration 05/26/22 Two Impairment Decreased core/pelvic strength Impairment Pt shows no automatic tightening of TA with transfers. Short Term Goal (STG) Pt will be able to demonstrate improved awareness of core stabilization with automatic TA contraction with posturing and transfers onto plinth and with rolling side to side. STG Duration 05/18 Fpc Goal (LTG) Decrease LBP with improved core/pelvic strength LTG Duration 05/26/22 One Impairment Lacks appropriate self care HEP Short Term Goal (STG) Educate pt in use of cryotherapy for pain management. STG Duration 05/06/22 Fpc Goal (LTG) Educate pt in self care HEP ex 's of neck elongation, TA strengthening, and education in proper footwear for pre- and post- postural care. LTG Duration 05/26/22 Assessment Summary Assessment Juan's pain was higher today, more in lumbar spine. At end of treatment that had improved, but sacral pain was more prominent. Physical Therapy Plan Frequency and Duration Frequency of Treatment 2x/Week Duration of treatment (weeks) 6 Plan of Care Start Date 05/15/22 Plan of Care End Date 06/26/22 Therapeutic Interventions Therapeutic Interventions Home Exercise Program,Joint Mobilizations,Manual Therapy, Patient/Caregiver Education, Self-Care/Home Management,Soft Tissue Mobilization,Taping, Therapeutic Activities, Therapeutic Exercises Modalities Cold Pack/Ice Massage,Electric Stimulation Next Visit Focus/Plan Next Note Type Treatment Note Next Visit Plan Improve pelvic positioning, strengthen core and stabilize core/pelvis, improve body mechanics (transfers & ADLs) and address postural changes, and LE neural tension, and educate in self care HEP. Teach post pelvic stabilization. Educate in use of ice for pain management.
--- NOTE | 2022-05-15 15:36 | PT.OPPOC ---
Physical, Occupational & Speech Therapy At [facility] Current Diagnoses Sacrococcygeal disorders, not elsewhere classified (05/15/22) Encounter for supervision of other normal , second trimester (05/15/22) Visit Care Team Role Provider Type Deangelo Ortega MD Family Provider Physician Primary Care Provider Specialty: Family Practice Address: [address] [place] [address], [id number] Email: [email or web address] Shelbie Joyce PA-C Attending Provider Advanced Hedis Specialist Referring Provider Specialty: Medical Address: [address] [place] [address], [address], [place], [address] Phone: Fax: Email: Plan Of Care PT-OP-T Assessment and Plan Start: 05/04/22 08:13 Freq: Status: Active Protocol: Document 05/15/22 14:35 AMB (Rec: 05/15/22 15:35 AMB [id number]) Physical Therapy Assessment Goals Three Impairment Postural changes Impairment Fwd head, flattened T/S, increased lordosis, decreased foot arch. Short Term Goal (STG) Pt will be educated in postural changes due to with recommendations for self corrections. STG Duration 05/12/22 Telegraph Equipment Maintainer Goal (LTG) Decrease severity of LE muscle cramp onset during the nighttime with improved posture of LB/pelvis. LTG Duration 05/26/22 Two Impairment Decreased core/pelvic strength Impairment Pt shows no automatic tightening of TA with transfers. Short Term Goal (STG) Pt will be able to demonstrate improved awareness of core stabilization with automatic TA contraction with posturing and transfers onto plinth and with rolling side to side. STG Duration 05/18 Telegraph Equipment Maintainer Goal (LTG) Decrease LBP with improved core/pelvic strength LTG Duration 05/26/22 One Impairment Lacks appropriate self care HEP Short Term Goal (STG) Educate pt in use of cryotherapy for pain management. STG Duration 05/06/22 Shelter Goal (LTG) Educate pt in self care HEP ex 's of neck elongation, TA strengthening, and education in proper footwear for pre- and post- postural care. LTG Duration 05/26/22 Assessment Summary Assessment Lizanne's pain was higher today, more in lumbar spine. At end of treatment that had improved, but sacral pain was more prominent. Physical Therapy Plan Frequency and Duration Frequency of Treatment 2x/Week Duration of treatment (weeks) 6 Plan of Care Start Date 05/15/22 Plan of Care End Date 06/26/22 Therapeutic Interventions Therapeutic Interventions Home Exercise Program,Joint Mobilizations,Manual Therapy, Patient/Caregiver Education, Self-Care/Home Management,Soft Tissue Mobilization,Taping, Therapeutic Activities, Therapeutic Exercises Modalities Cold Pack/Ice Massage,Electric Stimulation Next Visit Focus/Plan Next Note Type Treatment Note Next Visit Plan Improve pelvic positioning, strengthen core and stabilize core/pelvis, improve body mechanics (transfers & ADLs) and address postural changes, and LE neural tension, and educate in self care HEP. Teach post pelvic stabilization. Educate in use of ice for pain management. Plan of Care Dates Plan of Care Start Date 05/15/22 Plan of Care End Date 06/26/22 Electronically Signed by: Karley Stephenson, PT 05/15/22 2845 If you are in agreement with this Plan of Care, please return a signed and dated copy. I have reviewed this Plan of Care and certify that the skilled therapy services above are required to meet the patient?s needs. Physician Signature Date Printed Name and Credentials Clinical Instructor Signature Printed Name and Credentials
--- NOTE | 2022-05-18 15:55 | PT.OTN ---
Current Diagnoses Sacrococcygeal disorders, not elsewhere classified (05/18/22) Encounter for supervision of other normal , second trimester (05/18/22) Physical Therapy Treatment Note PT-OP-A Visit Information Start: 05/04/22 08:13 Freq: Status: Active Protocol: Document 05/18/22 13:51 AMB (Rec: 05/18/22 14:35 AMB [id number]) Out-Patient Physical Therapy Visit Information Visit Information Visit Type Treatment Note Visit Start Time 13:45 Visit Stop Time 14:30 Total Visit Minutes 45 Visit Number 5 PT-OP-B Current Condition Start: 05/04/22 08:13 Freq: Status: Active Protocol: Document 05/04/22 11:23 LRN (Rec: 05/04/22 12:39 LRN [id number]) Current Condition History of Current Condition Onset Date 02/2022 Current Complaints Iban LBP L>R w/nightly LE ms cramps. Having trouble sitting on floor. History of Current Condition Pt is 30 weeks . Experiencing pain in the low back (L>R) radiating up the back when moving rolling from one side to the other in bed. She has cramps every night in the iban lateral hips, hamstrings, gastocs, ankle ( causing IV) and toes curling ( R foot cramps every night and L foot cramps every other night and sometimes at the same time). She has had nightly L sided back pain since Feb, now on both sides. 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 Developmental History Developmental History Works from home and 1/2 days goes barefoot. Treatment Goals Patient/Caregiver Goals Pt goal is to have less pain. Pt agreeable after discussion to education in posturing and transfers and learning exercises and HEP for self care. Personal Factors Other Personal Factors That May Effect Has 2.5 year old toddler. Therapy/Recovery Works from home and doesn't wear shoes. PT-OP-C Subjective Start: 05/04/22 08:13 Freq: Status: Active Protocol: Document 05/18/22 13:51 AMB (Rec: 05/18/22 14:35 AMB [id number]) OP-PT Subjective Patient Comments Patient Comments Tried going to the pool, but was having to manage toddler, so wasn't especially helpful PT-OP-J Posture/Palpation/Skin Start: 05/04/22 08:13 Freq: Status: Active Protocol: Document 05/04/22 11:23 LRN (Rec: 05/04/22 12:39 LRN [id number]) Posture Evaluation Position Standing Head/C-Spine Posture Forward Head T-Spine Posture Flattened L-Spine Posture Increased Lordosis Foot Arch (L) Medium Arch,(R) Medium Arch Comments Posture Comments C curve of upper T/S with apex on L. Umbilicus not shifted horizontally. Palpation Assessment Location Ischial Tuberosity Palpation Location Ischial Tuberosity in prone on pillow Palpation Details L Ischial tuberosity is low and posterior in prone on pillow. Sacrum Palpation Location Sacral sulcus and SAURABH Palpation Findings Tenderness Palpation Details Sacrum in L rotation Sacral Sulcus elevated on left PSIS Palpation Location L PSIS is low on pillow Palpation Findings Tenderness PT-OP-K Range of Motion Start: 05/04/22 08:13 Freq: Status: Active Protocol: Document 05/04/22 11:23 LRN (Rec: 05/04/22 12:39 LRN [id number]) Lumbar Spine Range of Motion Lumbar Spine Active Degrees Testing Position Standing Flexion 85 Extension 3 Comments Flex is 85 deg's with 40 deg's hip flexion Ext is 0 deg's with 3 deg's hip ext. Tightness with R SB PT-OP-L Special Tests Start: 05/04/22 08:13 Freq: Status: Active Protocol: Document 05/04/22 11:23 LRN (Rec: 05/04/22 12:39 LRN [id number]) Special Tests Lumbar Spine Special Tests Slump Test Results + left, - right Comments No pain with neck ext/knee ext , but pain with added ankle DF . PT-OP-M Strength Start: 05/04/22 08:13 Freq: Status: Active Protocol: Document 05/04/22 11:23 LRN (Rec: 05/04/22 12:39 LRN [id number]) Trunk Strength Trunk Manual Muscle Testing Flexion 2 Poor Hip Strength Hip Manual Muscle Testing Right External Rotation 3 Fair Internal Rotation 3+ Fair+ Left External Rotation 3 Fair Internal Rotation 3+ Fair+ PT-OP-Q Treatments Start: 05/04/22 08:13 Freq: Status: Active Protocol: Document 05/18/22 13:51 AMB (Rec: 05/18/22 14:35 AMB [id number]) Therapeutic Exercises Sidelying Exercises clamshell Reps/Minutes 2x10 Other Exercises Child's Pose Other Exercise Name Child's pose Reps/Minutes 2' Hands/knees TA Other Exercise Name TA tightening Reps/Minutes 3' Manual Therapy Treatment Soft Tissue Mobilization lumbar paraspinals Body Location MFR low lumbar L piriformis Mobilization Type Myofascial Release Intensity/Depth Moderate Body Position Sidelying Comments very tender PT-OP-R Modalities Start: 05/04/22 08:13 Freq: Status: Active Protocol: Document 05/15/22 14:35 AMB (Rec: 05/15/22 15:35 AMB [id number]) Electric Stimulation Electric Stimulation Interferential Current (IFC) Body Location low back Duration (Minutes) 10 Comments prone on pillow PT-OP-T Assessment and Plan Start: 05/04/22 08:13 Freq: Status: Active Protocol: Document 05/18/22 13:51 AMB (Rec: 05/18/22 14:35 AMB [id number]) Physical Therapy Assessment Goals Three Impairment Postural changes Impairment Fwd head, flattened T/S, increased lordosis, decreased foot arch. Short Term Goal (STG) Pt will be educated in postural changes due to with recommendations for self corrections. STG Duration 05/12/22 Half-Way Goal (LTG) Decrease severity of LE muscle cramp onset during the nighttime with improved posture of LB/pelvis. LTG Duration 05/26/22 Two Impairment Decreased core/pelvic strength Impairment Pt shows no automatic tightening of TA with transfers. Short Term Goal (STG) Pt will be able to demonstrate improved awareness of core stabilization with automatic TA contraction with posturing and transfers onto plinth and with rolling side to side. STG Duration 05/18 Half-Way Goal (LTG) Decrease LBP with improved core/pelvic strength LTG Duration 05/26/22 One Impairment Lacks appropriate self care HEP Short Term Goal (STG) Educate pt in use of cryotherapy for pain management. STG Duration 05/06/22 Half-Way Goal (LTG) Educate pt in self care HEP ex 's of neck elongation, TA strengthening, and education in proper footwear for pre- and post- postural care. LTG Duration 05/26/22 Assessment Summary Assessment Juan continues to have pain that makes it difficult to perform bed mobility, encouraged in continued TA stabilization. Physical Therapy Plan Frequency and Duration Frequency of Treatment 2x/Week Duration of treatment (weeks) 6 Plan of Care Start Date 05/15/22 Plan of Care End Date 06/26/22 Therapeutic Interventions Therapeutic Interventions Home Exercise Program,Joint Mobilizations,Manual Therapy, Patient/Caregiver Education, Self-Care/Home Management,Soft Tissue Mobilization,Taping, Therapeutic Activities, Therapeutic Exercises Modalities Cold Pack/Ice Massage,Electric Stimulation Next Visit Focus/Plan Next Note Type Treatment Note Next Visit Plan Improve pelvic positioning, strengthen core and stabilize core/pelvis, improve body mechanics (transfers & ADLs) and address postural changes, and LE neural tension, and educate in self care HEP. Teach post pelvic stabilization. Educate in use of ice for pain management.
--- NOTE | 2022-05-20 13:57 | PT.OTN ---
Current Diagnoses Sacrococcygeal disorders, not elsewhere classified (05/20/22) Encounter for supervision of other normal , second trimester (05/20/22) Physical Therapy Treatment Note PT-OP-A Visit Information Start: 05/04/22 08:13 Freq: Status: Active Protocol: Document 05/20/22 13:08 AMB (Rec: 05/20/22 13:57 AMB [id number]) Out-Patient Physical Therapy Visit Information Visit Information Visit Type Treatment Note Visit Start Time 13:00 Visit Stop Time 13:45 Total Visit Minutes 45 Visit Number 6 PT-OP-B Current Condition Start: 05/04/22 08:13 Freq: Status: Active Protocol: Document 05/04/22 11:23 LRN (Rec: 05/04/22 12:39 LRN [id number]) Current Condition History of Current Condition Onset Date 02/2022 Current Complaints Iban LBP L>R w/nightly LE ms cramps. Having trouble sitting on floor. History of Current Condition Pt is 30 weeks . Experiencing pain in the low back (L>R) radiating up the back when moving rolling from one side to the other in bed. She has cramps every night in the iban lateral hips, hamstrings, gastocs, ankle ( causing IV) and toes curling ( R foot cramps every night and L foot cramps every other night and sometimes at the same time). She has had nightly L sided back pain since Feb, now on both sides. 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 Developmental History Developmental History Works from home and 1/2 days goes barefoot. Treatment Goals Patient/Caregiver Goals Pt goal is to have less pain. Pt agreeable after discussion to education in posturing and transfers and learning exercises and HEP for self care. Personal Factors Other Personal Factors That May Effect Has 2.5 year old toddler. Therapy/Recovery Works from home and doesn't wear shoes. PT-OP-C Subjective Start: 05/04/22 08:13 Freq: Status: Active Protocol: Document 05/20/22 13:08 AMB (Rec: 05/20/22 13:57 AMB [id number]) OP-PT Subjective Patient Comments Patient Comments R leg spasms at night. Does report improvement since eval, hasn't been stuck on the floor due to pain in a few weeks. Moving from sit to stand does increase pain. The worst pain continues to be at night. PT-OP-J Posture/Palpation/Skin Start: 05/04/22 08:13 Freq: Status: Active Protocol: Document 05/04/22 11:23 LRN (Rec: 05/04/22 12:39 LRN [id number]) Posture Evaluation Position Standing Head/C-Spine Posture Forward Head T-Spine Posture Flattened L-Spine Posture Increased Lordosis Foot Arch (L) Medium Arch,(R) Medium Arch Comments Posture Comments C curve of upper T/S with apex on L. Umbilicus not shifted horizontally. Palpation Assessment Location Ischial Tuberosity Palpation Location Ischial Tuberosity in prone on pillow Palpation Details L Ischial tuberosity is low and posterior in prone on pillow. Sacrum Palpation Location Sacral sulcus and SAURABH Palpation Findings Tenderness Palpation Details Sacrum in L rotation Sacral Sulcus elevated on left PSIS Palpation Location L PSIS is low on pillow Palpation Findings Tenderness PT-OP-K Range of Motion Start: 05/04/22 08:13 Freq: Status: Active Protocol: Document 05/04/22 11:23 LRN (Rec: 05/04/22 12:39 LRN [id number]) Lumbar Spine Range of Motion Lumbar Spine Active Degrees Testing Position Standing Flexion 85 Extension 3 Comments Flex is 85 deg's with 40 deg's hip flexion Ext is 0 deg's with 3 deg's hip ext. Tightness with R SB PT-OP-L Special Tests Start: 05/04/22 08:13 Freq: Status: Active Protocol: Document 05/04/22 11:23 LRN (Rec: 05/04/22 12:39 LRN [id number]) Special Tests Lumbar Spine Special Tests Slump Test Results + left, - right Comments No pain with neck ext/knee ext , but pain with added ankle DF . PT-OP-M Strength Start: 05/04/22 08:13 Freq: Status: Active Protocol: Document 05/04/22 11:23 LRN (Rec: 05/04/22 12:39 LRN [id number]) Trunk Strength Trunk Manual Muscle Testing Flexion 2 Poor Hip Strength Hip Manual Muscle Testing Right External Rotation 3 Fair Internal Rotation 3+ Fair+ Left External Rotation 3 Fair Internal Rotation 3+ Fair+ PT-OP-Q Treatments Start: 05/04/22 08:13 Freq: Status: Active Protocol: Document 05/20/22 13:08 AMB (Rec: 05/20/22 13:57 AMB [id number]) Therapeutic Exercises Sidelying Exercises open book Reps/Minutes 2x10 clamshell Reps/Minutes 2x10 Other Exercises quadruped hip wag Reps/Minutes 10 quaderuped UE flex Reps/Minutes 2x10 Comments cue TA-- challenging Child's Pose Other Exercise Name Child's pose Reps/Minutes 2' Comments with sidebending Hands/knees TA Other Exercise Name TA tightening Reps/Minutes 3' Manual Therapy Treatment Soft Tissue Mobilization lumbar paraspinals Body Location MFR low lumbar PT-OP-R Modalities Start: 05/04/22 08:13 Freq: Status: Active Protocol: Document 05/15/22 14:35 AMB (Rec: 05/15/22 15:35 AMB [id number]) Electric Stimulation Electric Stimulation Interferential Current (IFC) Body Location low back Duration (Minutes) 10 Comments prone on pillow PT-OP-T Assessment and Plan Start: 05/04/22 08:13 Freq: Status: Active Protocol: Document 05/20/22 13:08 AMB (Rec: 05/20/22 13:57 AMB [id number]) Physical Therapy Assessment Goals Three Impairment Postural changes Impairment Fwd head, flattened T/S, increased lordosis, decreased foot arch. Short Term Goal (STG) Pt will be educated in postural changes due to with recommendations for self corrections. STG Duration MET Detention Goal (LTG) Decrease severity of LE muscle cramp onset during the nighttime with improved posture of LB/pelvis. LTG Duration 05/26/22 Two Impairment Decreased core/pelvic strength Impairment Pt shows no automatic tightening of TA with transfers. Short Term Goal (STG) Pt will be able to demonstrate improved awareness of core stabilization with automatic TA contraction with posturing and transfers onto plinth and with rolling side to side. STG Duration MET Deburrer Goal (LTG) Decrease LBP with improved core/pelvic strength LTG Duration 05/26/22 One Impairment Lacks appropriate self care HEP Short Term Goal (STG) Educate pt in use of cryotherapy for pain management. STG Duration MET Deburrer Goal (LTG) Educate pt in self care HEP ex 's of neck elongation, TA strengthening, and education in proper footwear for pre- and post- postural care. LTG Duration MET Assessment Summary Assessment We have met about half of Juan's goals, but continue to have pain and spasms in lumbar spine that radiates down R>L leg especially worse at night with bed mobility. Pt would benefit from continued PT to progress stabilization and stretching as she progresses in her . Due in midMay. Physical Therapy Plan Frequency and Duration Frequency of Treatment 2x/Week Duration of treatment (weeks) 6 Plan of Care Start Date 05/15/22 Plan of Care End Date 06/26/22 Therapeutic Interventions Therapeutic Interventions Home Exercise Program,Joint Mobilizations,Manual Therapy, Patient/Caregiver Education, Self-Care/Home Management,Soft Tissue Mobilization,Taping, Therapeutic Activities, Therapeutic Exercises Modalities Cold Pack/Ice Massage,Electric Stimulation Next Visit Focus/Plan Next Note Type Treatment Note Next Visit Plan Improve pelvic positioning, strengthen core and stabilize core/pelvis, improve body mechanics (transfers & ADLs) and address postural changes, and LE neural tension, and educate in self care HEP. Teach post pelvic stabilization. Educate in use of ice for pain management.
--- NOTE | 2022-05-27 16:00 | PT.OTN ---
Current Diagnoses Sacrococcygeal disorders, not elsewhere classified (05/27/22) Encounter for supervision of other normal , second trimester (05/27/22) Physical Therapy Treatment Note PT-OP-A Visit Information Start: 05/04/22 08:13 Freq: Status: Active Protocol: Document 05/27/22 13:50 AMB (Rec: 05/27/22 14:38 AMB [id number]) Out-Patient Physical Therapy Visit Information Visit Information Visit Type Treatment Note Visit Start Time 13:45 Visit Stop Time 14:30 Total Visit Minutes 45 Visit Number 7 PT-OP-B Current Condition Start: 05/04/22 08:13 Freq: Status: Active Protocol: Document 05/04/22 11:23 LRN (Rec: 05/04/22 12:39 LRN [id number]) Current Condition History of Current Condition Onset Date 02/2022 Current Complaints Iban LBP L>R w/nightly LE ms cramps. Having trouble sitting on floor. History of Current Condition Pt is 30 weeks . Experiencing pain in the low back (L>R) radiating up the back when moving rolling from one side to the other in bed. She has cramps every night in the iban lateral hips, hamstrings, gastocs, ankle ( causing IV) and toes curling ( R foot cramps every night and L foot cramps every other night and sometimes at the same time). She has had nightly L sided back pain since Feb, now on both sides. 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 Developmental History Developmental History Works from home and 1/2 days goes barefoot. Treatment Goals Patient/Caregiver Goals Pt goal is to have less pain. Pt agreeable after discussion to education in posturing and transfers and learning exercises and HEP for self care. Personal Factors Other Personal Factors That May Effect Has 2.5 year old toddler. Therapy/Recovery Works from home and doesn't wear shoes. PT-OP-C Subjective Start: 05/04/22 08:13 Freq: Status: Active Protocol: Document 05/27/22 13:50 AMB (Rec: 05/27/22 14:38 AMB [id number]) OP-PT Subjective Patient Comments Patient Comments Pt got stuck on the floor last Wednesday. Leg spasms are better, hip cramps are back on the right. PT-OP-J Posture/Palpation/Skin Start: 05/04/22 08:13 Freq: Status: Active Protocol: Document 05/04/22 11:23 LRN (Rec: 05/04/22 12:39 LRN [id number]) Posture Evaluation Position Standing Head/C-Spine Posture Forward Head T-Spine Posture Flattened L-Spine Posture Increased Lordosis Foot Arch (L) Medium Arch,(R) Medium Arch Comments Posture Comments C curve of upper T/S with apex on L. Umbilicus not shifted horizontally. Palpation Assessment Location Ischial Tuberosity Palpation Location Ischial Tuberosity in prone on pillow Palpation Details L Ischial tuberosity is low and posterior in prone on pillow. Sacrum Palpation Location Sacral sulcus and SAURABH Palpation Findings Tenderness Palpation Details Sacrum in L rotation Sacral Sulcus elevated on left PSIS Palpation Location L PSIS is low on pillow Palpation Findings Tenderness PT-OP-K Range of Motion Start: 05/04/22 08:13 Freq: Status: Active Protocol: Document 05/04/22 11:23 LRN (Rec: 05/04/22 12:39 LRN [id number]) Lumbar Spine Range of Motion Lumbar Spine Active Degrees Testing Position Standing Flexion 85 Extension 3 Comments Flex is 85 deg's with 40 deg's hip flexion Ext is 0 deg's with 3 deg's hip ext. Tightness with R SB PT-OP-L Special Tests Start: 05/04/22 08:13 Freq: Status: Active Protocol: Document 05/04/22 11:23 LRN (Rec: 05/04/22 12:39 LRN [id number]) Special Tests Lumbar Spine Special Tests Slump Test Results + left, - right Comments No pain with neck ext/knee ext , but pain with added ankle DF . PT-OP-M Strength Start: 05/04/22 08:13 Freq: Status: Active Protocol: Document 05/04/22 11:23 LRN (Rec: 05/04/22 12:39 LRN [id number]) Trunk Strength Trunk Manual Muscle Testing Flexion 2 Poor Hip Strength Hip Manual Muscle Testing Right External Rotation 3 Fair Internal Rotation 3+ Fair+ Left External Rotation 3 Fair Internal Rotation 3+ Fair+ PT-OP-Q Treatments Start: 05/04/22 08:13 Freq: Status: Active Protocol: Document 05/27/22 13:50 AMB (Rec: 05/30/22 10:31 AMB [id number]) Therapeutic Exercises Sidelying Exercises open book Reps/Minutes 2x10 Other Exercises quadruped hip wag Reps/Minutes 10 Hands/knees TA Other Exercise Name TA tightening Reps/Minutes 3' Comments cue breath Manual Therapy Treatment Soft Tissue Mobilization lumbar paraspinals Body Location MFR low lumbar Comments on prone pillow L piriformis Mobilization Type Myofascial Release Intensity/Depth Moderate Body Position Sidelying Comments very tender Joint Mobilizations sacrum Joint PA [id number] PT-OP-R Modalities Start: 05/04/22 08:13 Freq: Status: Active Protocol: Document 05/15/22 14:35 AMB (Rec: 05/15/22 15:35 AMB [id number]) Electric Stimulation Electric Stimulation Interferential Current (IFC) Body Location low back Duration (Minutes) 10 Comments prone on pillow PT-OP-T Assessment and Plan Start: 05/04/22 08:13 Freq: Status: Active Protocol: Document 05/27/22 13:50 AMB (Rec: 05/30/22 10:31 AMB [id number]) Physical Therapy Assessment Goals Three Impairment Postural changes Impairment Fwd head, flattened T/S, increased lordosis, decreased foot arch. Short Term Goal (STG) Pt will be educated in postural changes due to with recommendations for self corrections. STG Duration MET Snf Goal (LTG) Decrease severity of LE muscle cramp onset during the nighttime with improved posture of LB/pelvis. LTG Duration 05/26/22 Two Impairment Decreased core/pelvic strength Impairment Pt shows no automatic tightening of TA with transfers. Short Term Goal (STG) Pt will be able to demonstrate improved awareness of core stabilization with automatic TA contraction with posturing and transfers onto plinth and with rolling side to side. STG Duration MET Snf Goal (LTG) Decrease LBP with improved core/pelvic strength LTG Duration 05/26/22 One Impairment Lacks appropriate self care HEP Short Term Goal (STG) Educate pt in use of cryotherapy for pain management. STG Duration MET Manager Pe Goal (LTG) Educate pt in self care HEP ex 's of neck elongation, TA strengthening, and education in proper footwear for pre- and post- postural care. LTG Duration MET Assessment Summary Assessment Juan continues to have pain /spasms with bed mobility. She had been improving but recently had increased pain, perhaps due to progression of (she is a little over a month from her due date ). She continues to lift her toddler into his crib at night and did discuss body mechanics with this. Physical Therapy Plan Frequency and Duration Frequency of Treatment 2x/Week Duration of treatment (weeks) 6 Plan of Care Start Date 05/15/22 Plan of Care End Date 06/26/22 Therapeutic Interventions Therapeutic Interventions Home Exercise Program,Joint Mobilizations,Manual Therapy, Patient/Caregiver Education, Self-Care/Home Management,Soft Tissue Mobilization,Taping, Therapeutic Activities, Therapeutic Exercises Modalities Cold Pack/Ice Massage,Electric Stimulation Next Visit Focus/Plan Next Note Type Treatment Note Next Visit Plan Can try seated therapy ball exercises for core facilitation/stretching, progress quadruped ther ex. Careful/slow progression Improve pelvic positioning, strengthen core and stabilize core/pelvis, improve body mechanics (transfers & ADLs) and address postural changes, and LE neural tension, and educate in self care HEP. Teach post pelvic stabilization. Educate in use of ice for pain management.
--- NOTE | 2022-06-01 11:15 | PT.OTN ---
Current Diagnoses Sacrococcygeal disorders, not elsewhere classified (06/01/22) Encounter for supervision of other normal , second trimester (06/01/22) Physical Therapy Treatment Note PT-OP-A Visit Information Start: 05/04/22 08:13 Freq: Status: Active Protocol: Document 06/01/22 10:39 SP (Rec: 06/01/22 11:25 SP [id number]) Out-Patient Physical Therapy Visit Information Visit Information Visit Type Treatment Note Visit Note COLTON Velasco observed and provided verbal cues/ ed to pt while under direct supervision and instruction of HIGH SCHOOL MATHEMATICS TEACHER with permission of pt. Visit Start Time 10:39 Visit Stop Time 11:15 Total Visit Minutes 36 Visit Number 8 Number of HIGH SCHOOL MATHEMATICS TEACHER Visits 1 PT-OP-B Current Condition Start: 05/04/22 08:13 Freq: Status: Active Protocol: Document 05/04/22 11:23 LRN (Rec: 05/04/22 12:39 LRN [id number]) Current Condition History of Current Condition Onset Date 02/2022 Current Complaints Iban LBP L>R w/nightly LE ms cramps. Having trouble sitting on floor. History of Current Condition Pt is 30 weeks . Experiencing pain in the low back (L>R) radiating up the back when moving rolling from one side to the other in bed. She has cramps every night in the iban lateral hips, hamstrings, gastocs, ankle ( causing IV) and toes curling ( R foot cramps every night and L foot cramps every other night and sometimes at the same time). She has had nightly L sided back pain since Feb, now on both sides. Pt has a 2.5 yr old son that she tries not to picker and sorter load and unload and lift, but does at times. Developmental History Developmental History Works from home and 1/2 days goes barefoot. Treatment Goals Patient/Caregiver Goals Pt goal is to have less pain. Pt agreeable after discussion to education in posturing and transfers and learning exercises and HEP for self care. Personal Factors Other Personal Factors That May Effect Has 2.5 year old toddler. Therapy/Recovery Works from home and doesn't wear shoes. PT-OP-C Subjective Start: 05/04/22 08:13 Freq: Status: Active Protocol: Document 06/01/22 10:39 SP (Rec: 06/01/22 11:25 SP [id number]) OP-PT Subjective Patient Comments Patient Comments Pt reports R side lateral hip and leg pain 08/01, is compliant with HEP and feels helping. PT-OP-J Posture/Palpation/Skin Start: 05/04/22 08:13 Freq: Status: Active Protocol: Document 05/04/22 11:23 LRN (Rec: 05/04/22 12:39 LRN [id number]) Posture Evaluation Position Standing Head/C-Spine Posture Forward Head T-Spine Posture Flattened L-Spine Posture Increased Lordosis Foot Arch (L) Medium Arch,(R) Medium Arch Comments Posture Comments C curve of upper T/S with apex on L. Umbilicus not shifted horizontally. Palpation Assessment Location Ischial Tuberosity Palpation Location Ischial Tuberosity in prone on pillow Palpation Details L Ischial tuberosity is low and posterior in prone on pillow. Sacrum Palpation Location Sacral sulcus and SAURABH Palpation Findings Tenderness Palpation Details Sacrum in L rotation Sacral Sulcus elevated on left PSIS Palpation Location L PSIS is low on pillow Palpation Findings Tenderness PT-OP-K Range of Motion Start: 05/04/22 08:13 Freq: Status: Active Protocol: Document 05/04/22 11:23 LRN (Rec: 05/04/22 12:39 LRN [id number]) Lumbar Spine Range of Motion Lumbar Spine Active Degrees Testing Position Standing Flexion 85 Extension 3 Comments Flex is 85 deg's with 40 deg's hip flexion Ext is 0 deg's with 3 deg's hip ext. Tightness with R SB PT-OP-L Special Tests Start: 05/04/22 08:13 Freq: Status: Active Protocol: Document 05/04/22 11:23 LRN (Rec: 05/04/22 12:39 LRN [id number]) Special Tests Lumbar Spine Special Tests Slump Test Results + left, - right Comments No pain with neck ext/knee ext , but pain with added ankle DF . PT-OP-M Strength Start: 05/04/22 08:13 Freq: Status: Active Protocol: Document 05/04/22 11:23 LRN (Rec: 05/04/22 12:39 LRN [id number]) Trunk Strength Trunk Manual Muscle Testing Flexion 2 Poor Hip Strength Hip Manual Muscle Testing Right External Rotation 3 Fair Internal Rotation 3+ Fair+ Left External Rotation 3 Fair Internal Rotation 3+ Fair+ PT-OP-Q Treatments Start: 05/04/22 08:13 Freq: Status: Active Protocol: Document 06/01/22 10:39 SP (Rec: 06/01/22 11:25 SP [id number]) Therapeutic Exercises Sidelying Exercises open book Side bilateral Reps/Minutes 2x10 Comments cued low trap fac, fluid movement clamshell Side bilateral Equipment Used limited range due to states can get cramping in hip abd Reps/Minutes 2x10 Comments cued T&neutral pelvis, slow small range for control con/ ecc- ok 4/10 Standing Exercises rows, ext Standing Exercise Name added to HEP Resistance TB #2 ext, TB #3 rows Reps/Minutes x10 reps Comments good feedback response of scap and core stab engagement Other Exercises quadruped hip wag Side bilateral Reps/Minutes 10 Comments good form and response feels good quaderuped UE flex Side bilateral Equipment Used good stability response Reps/Minutes x10 Comments cued CS ext/nod, level across shlds, feels more active TA good level pelvis Child's Pose Other Exercise Name 1 Child's pose 2. thread needle <> HABD Equipment Used w/ side bend Reps/Minutes 2' Comments cued thread needle feels better with less presure a Hands/knees TA Other Exercise Name 1 cat camel 2. TA tightening Reps/Minutes 3' Comments cue breath Manual Therapy Treatment Soft Tissue Mobilization R lat quad, ITB Mobilization Type Myofascial Release,Rolling Intensity/Depth Superficial Body Position Sidelying Comments manual and discussion ed use rolling pin rolling/rocking. R piriformis Body Location R Pirif Mobilization Type Myofascial Release,Rolling Intensity/Depth Superficial Body Position Sidelying Comments manual and ed use ball wall lumbar paraspinals Body Location R MFR low lumbar Mobilization Type Myofascial Release,Rolling Intensity/Depth Superficial Body Position Sidelying Comments manual and ed self ball wall PT-OP-R Modalities Start: 05/04/22 08:13 Freq: Status: Active Protocol: Document 05/15/22 14:35 AMB (Rec: 05/15/22 15:35 AMB [id number]) Electric Stimulation Electric Stimulation Interferential Current (IFC) Body Location low back Duration (Minutes) 10 Comments prone on pillow PT-OP-T Assessment and Plan Start: 05/04/22 08:13 Freq: Status: Active Protocol: Document 06/01/22 10:39 SP (Rec: 06/01/22 11:25 SP [id number]) Physical Therapy Assessment Goals Three Impairment Postural changes Impairment Fwd head, flattened T/S, increased lordosis, decreased foot arch. Short Term Goal (STG) Pt will be educated in postural changes due to with recommendations for self corrections. STG Duration MET Fdc Goal (LTG) Decrease severity of LE muscle cramp onset during the nighttime with improved posture of LB/pelvis. LTG Duration 05/26/22 Two Impairment Decreased core/pelvic strength Impairment Pt shows no automatic tightening of TA with transfers. Short Term Goal (STG) Pt will be able to demonstrate improved awareness of core stabilization with automatic TA contraction with posturing and transfers onto plinth and with rolling side to side. STG Duration MET Senior Care Provider Goal (LTG) Decrease LBP with improved core/pelvic strength LTG Duration 05/26/22 One Impairment Lacks appropriate self care HEP Short Term Goal (STG) Educate pt in use of cryotherapy for pain management. STG Duration MET Fdc Goal (LTG) Educate pt in self care HEP ex 's of neck elongation, TA strengthening, and education in proper footwear for pre- and post- postural care. LTG Duration MET Assessment Summary Assessment Pt improved scap and core facilitation and stability during quadruped activities and added resisted standing rows/ext, min cues for CS postioning in quadruped. Physical Therapy Plan Frequency and Duration Frequency of Treatment 2x/Week Duration of treatment (weeks) 6 Plan of Care Start Date 05/15/22 Plan of Care End Date 06/26/22 Therapeutic Interventions Therapeutic Interventions Home Exercise Program,Joint Mobilizations,Manual Therapy, Patient/Caregiver Education, Self-Care/Home Management,Soft Tissue Mobilization,Taping, Therapeutic Activities, Therapeutic Exercises Modalities Cold Pack/Ice Massage,Electric Stimulation Next Visit Focus/Plan Next Note Type Treatment Note Next Visit Plan recheck resisted rows/ shld ext. POC: next tx try seated therapy ball exercises for core facilitation/stretching, progress quadruped ther ex. Careful/slow progression Improve pelvic positioning, strengthen core and stabilize core/pelvis, improve body mechanics (transfers & ADLs) and address postural changes, and LE neural tension, and educate in self care HEP. Teach post pelvic stabilization. Educate in use of ice for pain management.
--- NOTE | 2022-06-03 16:24 | PT.OTN ---
Current Diagnoses Sacrococcygeal disorders, not elsewhere classified (06/03/22) Encounter for supervision of other normal , second trimester (06/03/22) Physical Therapy Treatment Note PT-OP-A Visit Information Start: 05/04/22 08:13 Freq: Status: Active Protocol: Document 06/03/22 13:48 SW (Rec: 06/03/22 16:24 SW [id number]) Out-Patient Physical Therapy Visit Information Visit Information Visit Type Treatment Note Visit Start Time 13:48 Visit Stop Time 14:30 Total Visit Minutes 42 Visit Number 9 Number of REST ROOM MATRON Visits 2 PT-OP-B Current Condition Start: 05/04/22 08:13 Freq: Status: Active Protocol: Document 05/04/22 11:23 LRN (Rec: 05/04/22 12:39 LRN [id number]) Current Condition History of Current Condition Onset Date 02/2022 Current Complaints Iban LBP L>R w/nightly LE ms cramps. Having trouble sitting on floor. History of Current Condition Pt is 30 weeks . Experiencing pain in the low back (L>R) radiating up the back when moving rolling from one side to the other in bed. She has cramps every night in the iban lateral hips, hamstrings, gastocs, ankle ( causing IV) and toes curling ( R foot cramps every night and L foot cramps every other night and sometimes at the same time). She has had nightly L sided back pain since Feb, now on both sides. Pt has a 2.5 yr old son that she tries not to cotton picker and lift, but does at times. Developmental History Developmental History Works from home and 1/2 days goes barefoot. Treatment Goals Patient/Caregiver Goals Pt goal is to have less pain. Pt agreeable after discussion to education in posturing and transfers and learning exercises and HEP for self care. Personal Factors Other Personal Factors That May Effect Has 2.5 year old toddler. Therapy/Recovery Works from home and doesn't wear shoes. PT-OP-C Subjective Start: 05/04/22 08:13 Freq: Status: Active Protocol: Document 06/03/22 13:48 SW (Rec: 06/03/22 16:24 SW [id number]) OP-PT Subjective Patient Comments Patient Comments Pt. reports back muscles spasms LB/PSIS area, she was using heat but discontinued due to . reports she is taking on more of the work with her toddler at home and her being away from home more. PT-OP-J Posture/Palpation/Skin Start: 05/04/22 08:13 Freq: Status: Active Protocol: Document 05/04/22 11:23 LRN (Rec: 05/04/22 12:39 LRN [id number]) Posture Evaluation Position Standing Head/C-Spine Posture Forward Head T-Spine Posture Flattened L-Spine Posture Increased Lordosis Foot Arch (L) Medium Arch,(R) Medium Arch Comments Posture Comments C curve of upper T/S with apex on L. Umbilicus not shifted horizontally. Palpation Assessment Location Ischial Tuberosity Palpation Location Ischial Tuberosity in prone on pillow Palpation Details L Ischial tuberosity is low and posterior in prone on pillow. Sacrum Palpation Location Sacral sulcus and SAURABH Palpation Findings Tenderness Palpation Details Sacrum in L rotation Sacral Sulcus elevated on left PSIS Palpation Location L PSIS is low on pillow Palpation Findings Tenderness PT-OP-K Range of Motion Start: 05/04/22 08:13 Freq: Status: Active Protocol: Document 05/04/22 11:23 LRN (Rec: 05/04/22 12:39 LRN [id number]) Lumbar Spine Range of Motion Lumbar Spine Active Degrees Testing Position Standing Flexion 85 Extension 3 Comments Flex is 85 deg's with 40 deg's hip flexion Ext is 0 deg's with 3 deg's hip ext. Tightness with R SB PT-OP-L Special Tests Start: 05/04/22 08:13 Freq: Status: Active Protocol: Document 05/04/22 11:23 LRN (Rec: 05/04/22 12:39 LRN [id number]) Special Tests Lumbar Spine Special Tests Slump Test Results + left, - right Comments No pain with neck ext/knee ext , but pain with added ankle DF . PT-OP-M Strength Start: 05/04/22 08:13 Freq: Status: Active Protocol: Document 05/04/22 11:23 LRN (Rec: 05/04/22 12:39 LRN [id number]) Trunk Strength Trunk Manual Muscle Testing Flexion 2 Poor Hip Strength Hip Manual Muscle Testing Right External Rotation 3 Fair Internal Rotation 3+ Fair+ Left External Rotation 3 Fair Internal Rotation 3+ Fair+ PT-OP-Q Treatments Start: 05/04/22 08:13 Freq: Status: Active Protocol: Document 06/03/22 13:48 SW (Rec: 06/03/22 16:24 SW [id number]) Therapeutic Exercises Standing Exercises Countertop Lat Stretch Side bilateral Reps/Minutes 2 min Other Exercises Quadrupped Self Hip mobilization Side bilateral Reps/Minutes 4x B Comments Verbal/ tactile cueing for maintaining core stability Bird Dog Side bilateral Reps/Minutes 5x Comments x1 extremity at a time, verbal and tactile cues for stability Child's Pose Other Exercise Name 1 Child's pose 2. thread needle <> HABD Equipment Used w/ side bend Reps/Minutes 2' Comments cued thread needle feels better with less presure a Hands/knees TA Other Exercise Name 1 cat camel 2. TA tightening Reps/Minutes 3' Comments cue breath Manual Therapy Treatment Soft Tissue Mobilization R piriformis Body Location R Pirif Mobilization Type Cross-Friction,Myofascial Release,Rolling Intensity/Depth Moderate Body Position Sidelying Comments manual and ed use ball wall lumbar paraspinals Body Location R MFR low lumbar Mobilization Type Myofascial Release,Rolling Intensity/Depth Superficial Body Position Sidelying Comments manual and ed self ball wall L piriformis Mobilization Type Myofascial Release Intensity/Depth Moderate Body Position Sidelying Comments very tender Manual Traction long axis Details BLE Body Position Sidelying Reps/Duration 30x4 PT-OP-R Modalities Start: 05/04/22 08:13 Freq: Status: Active Protocol: Document 05/15/22 14:35 AMB (Rec: 05/15/22 15:35 AMB [id number]) Electric Stimulation Electric Stimulation Interferential Current (IFC) Body Location low back Duration (Minutes) 10 Comments prone on pillow PT-OP-T Assessment and Plan Start: 05/04/22 08:13 Freq: Status: Active Protocol: Document 06/03/22 13:48 SW (Rec: 06/03/22 16:24 SW [id number]) Physical Therapy Assessment Goals Three Impairment Postural changes Impairment Fwd head, flattened T/S, increased lordosis, decreased foot arch. Short Term Goal (STG) Pt will be educated in postural changes due to with recommendations for self corrections. STG Duration MET Group Home Goal (LTG) Decrease severity of LE muscle cramp onset during the nighttime with improved posture of LB/pelvis. LTG Duration 05/26/22 Two Impairment Decreased core/pelvic strength Impairment Pt shows no automatic tightening of TA with transfers. Short Term Goal (STG) Pt will be able to demonstrate improved awareness of core stabilization with automatic TA contraction with posturing and transfers onto plinth and with rolling side to side. STG Duration MET Family Sociologist Goal (LTG) Decrease LBP with improved core/pelvic strength LTG Duration 05/26/22 One Impairment Lacks appropriate self care HEP Short Term Goal (STG) Educate pt in use of cryotherapy for pain management. STG Duration MET Group Home Goal (LTG) Educate pt in self care HEP ex 's of neck elongation, TA strengthening, and education in proper footwear for pre- and post- postural care. LTG Duration MET Assessment Summary Assessment Pt continues to have muscle spasms in back, discussed stretches and soft tissue mobilization that may be beneficial. She has been taking on more of the workload at home when her is away. She is due in a month and attributes some of her pain to late term . difficulty maintain core stability this session during therapeutic exercises. Physical Therapy Plan Frequency and Duration Frequency of Treatment 2x/Week Duration of treatment (weeks) 6 Plan of Care Start Date 05/15/22 Plan of Care End Date 06/26/22 Therapeutic Interventions Therapeutic Interventions Home Exercise Program,Joint Mobilizations,Manual Therapy, Patient/Caregiver Education, Self-Care/Home Management,Soft Tissue Mobilization,Taping, Therapeutic Activities, Therapeutic Exercises Modalities Cold Pack/Ice Massage,Electric Stimulation Next Visit Focus/Plan Next Note Type Treatment Note Next Visit Plan recheck resisted rows/ shld ext. POC: next tx try seated therapy ball exercises for core facilitation/stretching, progress quadruped ther ex. Careful/slow progression Improve pelvic positioning, strengthen core and stabilize core/pelvis, improve body mechanics (transfers & ADLs) and address postural changes, and LE neural tension, and educate in self care HEP. Teach post pelvic stabilization. Educate in use of ice for pain management.
--- NOTE | 2022-06-10 22:02 | PT.OTN ---
Current Diagnoses Sacrococcygeal disorders, not elsewhere classified (06/10/22) Encounter for supervision of other normal , second trimester (06/10/22) Physical Therapy Treatment Note PT-OP-A Visit Information Start: 05/04/22 08:13 Freq: Status: Active Protocol: Document 06/10/22 09:49 AMB (Rec: 06/10/22 10:30 AMB [id number]) Out-Patient Physical Therapy Visit Information Visit Information Visit Type Treatment Note Visit Start Time 09:40 Visit Stop Time 10:30 Total Visit Minutes 40 Visit Number 10 Number of GLASS CALIBRATOR Visits 0 PT-OP-B Current Condition Start: 05/04/22 08:13 Freq: Status: Active Protocol: Document 05/04/22 11:23 LRN (Rec: 05/04/22 12:39 LRN [id number]) Current Condition History of Current Condition Onset Date 02/2022 Current Complaints Iban LBP L>R w/nightly LE ms cramps. Having trouble sitting on floor. History of Current Condition Pt is 30 weeks . Experiencing pain in the low back (L>R) radiating up the back when moving rolling from one side to the other in bed. She has cramps every night in the iban lateral hips, hamstrings, gastocs, ankle ( causing IV) and toes curling ( R foot cramps every night and L foot cramps every other night and sometimes at the same time). She has had nightly L sided back pain since Feb, now on both sides. 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 Developmental History Developmental History Works from home and 1/2 days goes barefoot. Treatment Goals Patient/Caregiver Goals Pt goal is to have less pain. Pt agreeable after discussion to education in posturing and transfers and learning exercises and HEP for self care. Personal Factors Other Personal Factors That May Effect Has 2.5 year old toddler. Therapy/Recovery Works from home and doesn't wear shoes. PT-OP-C Subjective Start: 05/04/22 08:13 Freq: Status: Active Protocol: Document 06/10/22 09:45 AMB (Rec: 06/11/22 22:00 AMB [id number]) OP-PT Subjective Patient Comments Patient Comments Pt had increased sx for two days after last visit to PT. PT-OP-J Posture/Palpation/Skin Start: 05/04/22 08:13 Freq: Status: Active Protocol: Document 05/04/22 11:23 LRN (Rec: 05/04/22 12:39 LRN [id number]) Posture Evaluation Position Standing Head/C-Spine Posture Forward Head T-Spine Posture Flattened L-Spine Posture Increased Lordosis Foot Arch (L) Medium Arch,(R) Medium Arch Comments Posture Comments C curve of upper T/S with apex on L. Umbilicus not shifted horizontally. Palpation Assessment Location Ischial Tuberosity Palpation Location Ischial Tuberosity in prone on pillow Palpation Details L Ischial tuberosity is low and posterior in prone on pillow. Sacrum Palpation Location Sacral sulcus and SAURABH Palpation Findings Tenderness Palpation Details Sacrum in L rotation Sacral Sulcus elevated on left PSIS Palpation Location L PSIS is low on pillow Palpation Findings Tenderness PT-OP-K Range of Motion Start: 05/04/22 08:13 Freq: Status: Active Protocol: Document 05/04/22 11:23 LRN (Rec: 05/04/22 12:39 LRN [id number]) Lumbar Spine Range of Motion Lumbar Spine Active Degrees Testing Position Standing Flexion 85 Extension 3 Comments Flex is 85 deg's with 40 deg's hip flexion Ext is 0 deg's with 3 deg's hip ext. Tightness with R SB PT-OP-L Special Tests Start: 05/04/22 08:13 Freq: Status: Active Protocol: Document 05/04/22 11:23 LRN (Rec: 05/04/22 12:39 LRN [id number]) Special Tests Lumbar Spine Special Tests Slump Test Results + left, - right Comments No pain with neck ext/knee ext , but pain with added ankle DF . PT-OP-M Strength Start: 05/04/22 08:13 Freq: Status: Active Protocol: Document 05/04/22 11:23 LRN (Rec: 05/04/22 12:39 LRN [id number]) Trunk Strength Trunk Manual Muscle Testing Flexion 2 Poor Hip Strength Hip Manual Muscle Testing Right External Rotation 3 Fair Internal Rotation 3+ Fair+ Left External Rotation 3 Fair Internal Rotation 3+ Fair+ PT-OP-Q Treatments Start: 05/04/22 08:13 Freq: Status: Active Protocol: Document 06/10/22 09:49 AMB (Rec: 06/10/22 10:30 AMB [id number]) Therapeutic Exercises Sidelying Exercises open book Side bilateral Reps/Minutes 2x10 Comments cued low trap fac, fluid movement clamshell Side bilateral Equipment Used limited range due to states can get cramping in hip abd Reps/Minutes 2x10 Comments cued T&neutral pelvis, slow small range for control con/ ecc- ok 4/10 Standing Exercises rows, ext Standing Exercise Name added to HEP Resistance TB #2 ext, TB #3 rows Reps/Minutes x10 reps Comments good feedback response of scap and core stab engagement Other Exercises quadruped hip wag Side bilateral Reps/Minutes 10 Comments good form and response feels good Hands/knees TA Other Exercise Name 1 cat camel 2. TA tightening Reps/Minutes 3' Comments cue breath Manual Therapy Treatment Soft Tissue Mobilization R piriformis Body Location R Pirif Mobilization Type Cross-Friction,Myofascial Release,Rolling Intensity/Depth Moderate Body Position Sidelying Comments manual and ed use ball wall PT-OP-R Modalities Start: 05/04/22 08:13 Freq: Status: Active Protocol: Document 05/15/22 14:35 AMB (Rec: 05/15/22 15:35 AMB [id number]) Electric Stimulation Electric Stimulation Interferential Current (IFC) Body Location low back Duration (Minutes) 10 Comments prone on pillow PT-OP-T Assessment and Plan Start: 05/04/22 08:13 Freq: Status: Active Protocol: Document 06/10/22 09:49 AMB (Rec: 06/10/22 10:30 AMB [id number]) Physical Therapy Assessment Goals Three Impairment Postural changes Impairment Fwd head, flattened T/S, increased lordosis, decreased foot arch. Short Term Goal (STG) Pt will be educated in postural changes due to with recommendations for self corrections. STG Duration MET Fdc Goal (LTG) Decrease severity of LE muscle cramp onset during the nighttime with improved posture of LB/pelvis. LTG Duration 05/26/22 Two Impairment Decreased core/pelvic strength Impairment Pt shows no automatic tightening of TA with transfers. Short Term Goal (STG) Pt will be able to demonstrate improved awareness of core stabilization with automatic TA contraction with posturing and transfers onto plinth and with rolling side to side. STG Duration MET Assurance Services Manager Health Care Goal (LTG) Decrease LBP with improved core/pelvic strength LTG Duration 05/26/22 One Impairment Lacks appropriate self care HEP Short Term Goal (STG) Educate pt in use of cryotherapy for pain management. STG Duration MET Fdc Goal (LTG) Educate pt in self care HEP ex 's of neck elongation, TA strengthening, and education in proper footwear for pre- and post- postural care. LTG Duration MET Assessment Summary Assessment Zoraida continues to have difficulty with TA engagement, better today, but does tend to tolerate exercises in session and then flare up hours later, continue to progress but slowly given pt's tendency to have latent response to exercise. Physical Therapy Plan Frequency and Duration Frequency of Treatment 2x/Week Duration of treatment (weeks) 6 Plan of Care Start Date 05/15/22 Plan of Care End Date 06/26/22 Therapeutic Interventions Therapeutic Interventions Home Exercise Program,Joint Mobilizations,Manual Therapy, Patient/Caregiver Education, Self-Care/Home Management,Soft Tissue Mobilization,Taping, Therapeutic Activities, Therapeutic Exercises Modalities Cold Pack/Ice Massage,Electric Stimulation Next Visit Focus/Plan Next Note Type Treatment Note Next Visit Plan recheck resisted rows/ shld ext. POC: next tx try seated therapy ball exercises for core facilitation/stretching, progress quadruped ther ex. Careful/slow progression Improve pelvic positioning, strengthen core and stabilize core/pelvis, improve body mechanics (transfers & ADLs) and address postural changes, and LE neural tension, and educate in self care HEP. Teach post pelvic stabilization. Educate in use of ice for pain management.
--- NOTE | 2022-06-16 14:30 | PT.OTN ---
Current Diagnoses Sacrococcygeal disorders, not elsewhere classified (06/16/22) Encounter for supervision of other normal , second trimester (06/16/22) Physical Therapy Treatment Note PT-OP-A Visit Information Start: 05/04/22 08:13 Freq: Status: Active Protocol: Document 06/16/22 13:48 SP (Rec: 06/16/22 14:32 SP [id number]) Out-Patient Physical Therapy Visit Information Visit Information Visit Type Treatment Note Visit Start Time 13:48 Visit Stop Time 14:30 Total Visit Minutes 42 Visit Number 11 Number of NARROW FABRICS WEAVER Visits 1 Evaluation Information Evaluation Date 05/04/22 Precautions Precautions Heart ablation for tacchydardia - 2018. PT-OP-B Current Condition Start: 05/04/22 08:13 Freq: Status: Active Protocol: Document 05/04/22 11:23 LRN (Rec: 05/04/22 12:39 LRN [id number]) Current Condition History of Current Condition Onset Date 02/2022 Current Complaints Iban LBP L>R w/nightly LE ms cramps. Having trouble sitting on floor. History of Current Condition Pt is 30 weeks . Experiencing pain in the low back (L>R) radiating up the back when moving rolling from one side to the other in bed. She has cramps every night in the iban lateral hips, hamstrings, gastocs, ankle ( causing IV) and toes curling ( R foot cramps every night and L foot cramps every other night and sometimes at the same time). She has had nightly L sided back pain since Feb, now on both sides. Pt has a 2.5 yr old son that she tries not to pick up driver and lift, but does at times. Developmental History Developmental History Works from home and 1/2 days goes barefoot. Treatment Goals Patient/Caregiver Goals Pt goal is to have less pain. Pt agreeable after discussion to education in posturing and transfers and learning exercises and HEP for self care. Personal Factors Other Personal Factors That May Effect Has 2.5 year old toddler. Therapy/Recovery Works from home and doesn't wear shoes. PT-OP-C Subjective Start: 05/04/22 08:13 Freq: Status: Active Protocol: Document 06/16/22 13:48 SP (Rec: 06/16/22 14:32 SP [id number]) OP-PT Subjective Patient Comments Patient Comments Pt reports L low back hurting. Older son teething with molars so not getting alot sleep and having to carry on L hip so causing pain. Not able to hold on R due to awkward. PT-OP-J Posture/Palpation/Skin Start: 05/04/22 08:13 Freq: Status: Active Protocol: Document 05/04/22 11:23 LRN (Rec: 05/04/22 12:39 LRN [id number]) Posture Evaluation Position Standing Head/C-Spine Posture Forward Head T-Spine Posture Flattened L-Spine Posture Increased Lordosis Foot Arch (L) Medium Arch,(R) Medium Arch Comments Posture Comments C curve of upper T/S with apex on L. Umbilicus not shifted horizontally. Palpation Assessment Location Ischial Tuberosity Palpation Location Ischial Tuberosity in prone on pillow Palpation Details L Ischial tuberosity is low and posterior in prone on pillow. Sacrum Palpation Location Sacral sulcus and SAURABH Palpation Findings Tenderness Palpation Details Sacrum in L rotation Sacral Sulcus elevated on left PSIS Palpation Location L PSIS is low on pillow Palpation Findings Tenderness PT-OP-K Range of Motion Start: 05/04/22 08:13 Freq: Status: Active Protocol: Document 05/04/22 11:23 LRN (Rec: 05/04/22 12:39 LRN [id number]) Lumbar Spine Range of Motion Lumbar Spine Active Degrees Testing Position Standing Flexion 85 Extension 3 Comments Flex is 85 deg's with 40 deg's hip flexion Ext is 0 deg's with 3 deg's hip ext. Tightness with R SB PT-OP-L Special Tests Start: 05/04/22 08:13 Freq: Status: Active Protocol: Document 05/04/22 11:23 LRN (Rec: 05/04/22 12:39 LRN [id number]) Special Tests Lumbar Spine Special Tests Slump Test Results + left, - right Comments No pain with neck ext/knee ext , but pain with added ankle DF . PT-OP-M Strength Start: 05/04/22 08:13 Freq: Status: Active Protocol: Document 05/04/22 11:23 LRN (Rec: 05/04/22 12:39 LRN [id number]) Trunk Strength Trunk Manual Muscle Testing Flexion 2 Poor Hip Strength Hip Manual Muscle Testing Right External Rotation 3 Fair Internal Rotation 3+ Fair+ Left External Rotation 3 Fair Internal Rotation 3+ Fair+ PT-OP-Q Treatments Start: 05/04/22 08:13 Freq: Status: Active Protocol: Document 06/16/22 13:48 SP (Rec: 06/16/22 14:32 SP [id number]) Gym Equipment Therapeutic Ball green 65 cm tball Exercise Details cued slow movement Ball Size/Color 65 cm Body Position Sitting Reps/Duration 10 reps each direction Comments 1. pelvic tilts: f/b/lat 2. april 3. LAQ Therapeutic Exercises Sidelying Exercises open book Side bilateral Reps/Minutes 2x8 Comments cued low trap fac, fluid movement Standing Exercises Countertop Lat Stretch Standing Exercise Name sink stretch QL- lateral pelvic tilt Side bilateral Equipment Used rail support Reps/Minutes 30 hold x4 reps Comments good feedback QL stretch Manual Therapy Treatment Soft Tissue Mobilization lumbar paraspinals Body Location R MFR ES, Paraspinal, QL Mobilization Type Myofascial Release,Sustained Pressure,Other Intensity/Depth Moderate Body Position Sidelying Comments manual MFR and sustained pressure with hip elevation/ depression and eccentric resisted depressoin w/ FM and ed self racquetball wall PT-OP-R Modalities Start: 05/04/22 08:13 Freq: Status: Active Protocol: Document 05/15/22 14:35 AMB (Rec: 05/15/22 15:35 AMB [id number]) Electric Stimulation Electric Stimulation Interferential Current (IFC) Body Location low back Duration (Minutes) 10 Comments prone on pillow PT-OP-T Assessment and Plan Start: 05/04/22 08:13 Freq: Status: Active Protocol: Document 06/16/22 13:48 SP (Rec: 06/16/22 14:32 SP [id number]) Physical Therapy Assessment Goals Three Impairment Postural changes Impairment Fwd head, flattened T/S, increased lordosis, decreased foot arch. Short Term Goal (STG) Pt will be educated in postural changes due to with recommendations for self corrections. STG Duration MET Java Programmer Analyst Goal (LTG) Decrease severity of LE muscle cramp onset during the nighttime with improved posture of LB/pelvis. LTG Duration 05/26/22 Two Impairment Decreased core/pelvic strength Impairment Pt shows no automatic tightening of TA with transfers. Short Term Goal (STG) Pt will be able to demonstrate improved awareness of core stabilization with automatic TA contraction with posturing and transfers onto plinth and with rolling side to side. STG Duration MET Prison Goal (LTG) Decrease LBP with improved core/pelvic strength LTG Duration 05/26/22 One Impairment Lacks appropriate self care HEP Short Term Goal (STG) Educate pt in use of cryotherapy for pain management. STG Duration MET Java Programmer Analyst Goal (LTG) Educate pt in self care HEP ex 's of neck elongation, TA strengthening, and education in proper footwear for pre- and post- postural care. LTG Duration MET Assessment Summary Assessment Pt good feedback response, feel core more engaged use Tball this tx and more mobility through LS. Self application massage racquetball on wall good response for self STMs. Physical Therapy Plan Frequency and Duration Frequency of Treatment 2x/Week Duration of treatment (weeks) 6 Plan of Care Start Date 05/15/22 Plan of Care End Date 06/26/22 Therapeutic Interventions Therapeutic Interventions Home Exercise Program,Joint Mobilizations,Manual Therapy, Patient/Caregiver Education, Self-Care/Home Management,Soft Tissue Mobilization,Taping, Therapeutic Activities, Therapeutic Exercises Modalities Cold Pack/Ice Massage,Electric Stimulation Next Visit Focus/Plan Next Note Type Treatment Note Next Visit Plan Recheck response tball ther ex and use rac. ball wall ES last tx. POC: continue seated therapy ball exercises for core facilitation/stretching, progress quadruped ther ex: UE / LE ext. *Careful/slow progression due to latent response. Improve pelvic positioning, strengthen core and stabilize core/pelvis, improve body mechanics (transfers & ADLs) and address postural changes, and LE neural tension, and educate in self care HEP. Teach post pelvic stabilization. Educate in use of ice for pain management.
--- NOTE | 2022-06-19 10:30 | PT.OTN ---
Current Diagnoses Sacrococcygeal disorders, not elsewhere classified (06/19/22) Encounter for supervision of other normal , second trimester (06/19/22) Physical Therapy Treatment Note PT-OP-A Visit Information Start: 05/04/22 08:13 Freq: Status: Active Protocol: Document 06/19/22 09:50 SP (Rec: 06/19/22 10:31 SP [id number]) Out-Patient Physical Therapy Visit Information Visit Information Visit Type Treatment Note Visit Start Time 09:50 Visit Stop Time 10:30 Total Visit Minutes 40 Visit Number 12 Number of EMR SPECIALIST Visits 2 Evaluation Information Evaluation Date 05/04/22 Precautions Precautions Heart ablation for tacchydardia - 2018. PT-OP-B Current Condition Start: 05/04/22 08:13 Freq: Status: Active Protocol: Document 05/04/22 11:23 LRN (Rec: 05/04/22 12:39 LRN [id number]) Current Condition History of Current Condition Onset Date 02/2022 Current Complaints Iban LBP L>R w/nightly LE ms cramps. Having trouble sitting on floor. History of Current Condition Pt is 30 weeks . Experiencing pain in the low back (L>R) radiating up the back when moving rolling from one side to the other in bed. She has cramps every night in the iban lateral hips, hamstrings, gastocs, ankle ( causing IV) and toes curling ( R foot cramps every night and L foot cramps every other night and sometimes at the same time). She has had nightly L sided back pain since Feb, now on both sides. 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 Developmental History Developmental History Works from home and 1/2 days goes barefoot. Treatment Goals Patient/Caregiver Goals Pt goal is to have less pain. Pt agreeable after discussion to education in posturing and transfers and learning exercises and HEP for self care. Personal Factors Other Personal Factors That May Effect Has 2.5 year old toddler. Therapy/Recovery Works from home and doesn't wear shoes. PT-OP-C Subjective Start: 05/04/22 08:13 Freq: Status: Active Protocol: Document 06/19/22 09:50 SP (Rec: 06/19/22 10:31 SP [id number]) OP-PT Subjective Patient Comments Patient Comments Pt reports back popping alot and baby moving alot. [place] good after last tx and back felt looser past few days but evening terrible. L side not as stable feeling. PT-OP-J Posture/Palpation/Skin Start: 05/04/22 08:13 Freq: Status: Active Protocol: Document 05/04/22 11:23 LRN (Rec: 05/04/22 12:39 LRN [id number]) Posture Evaluation Position Standing Head/C-Spine Posture Forward Head T-Spine Posture Flattened L-Spine Posture Increased Lordosis Foot Arch (L) Medium Arch,(R) Medium Arch Comments Posture Comments C curve of upper T/S with apex on L. Umbilicus not shifted horizontally. Palpation Assessment Location Ischial Tuberosity Palpation Location Ischial Tuberosity in prone on pillow Palpation Details L Ischial tuberosity is low and posterior in prone on pillow. Sacrum Palpation Location Sacral sulcus and SAURABH Palpation Findings Tenderness Palpation Details Sacrum in L rotation Sacral Sulcus elevated on left PSIS Palpation Location L PSIS is low on pillow Palpation Findings Tenderness PT-OP-K Range of Motion Start: 05/04/22 08:13 Freq: Status: Active Protocol: Document 05/04/22 11:23 LRN (Rec: 05/04/22 12:39 LRN [id number]) Lumbar Spine Range of Motion Lumbar Spine Active Degrees Testing Position Standing Flexion 85 Extension 3 Comments Flex is 85 deg's with 40 deg's hip flexion Ext is 0 deg's with 3 deg's hip ext. Tightness with R SB PT-OP-L Special Tests Start: 05/04/22 08:13 Freq: Status: Active Protocol: Document 05/04/22 11:23 LRN (Rec: 05/04/22 12:39 LRN [id number]) Special Tests Lumbar Spine Special Tests Slump Test Results + left, - right Comments No pain with neck ext/knee ext , but pain with added ankle DF . PT-OP-M Strength Start: 05/04/22 08:13 Freq: Status: Active Protocol: Document 05/04/22 11:23 LRN (Rec: 05/04/22 12:39 LRN [id number]) Trunk Strength Trunk Manual Muscle Testing Flexion 2 Poor Hip Strength Hip Manual Muscle Testing Right External Rotation 3 Fair Internal Rotation 3+ Fair+ Left External Rotation 3 Fair Internal Rotation 3+ Fair+ PT-OP-Q Treatments Start: 05/04/22 08:13 Freq: Status: Active Protocol: Document 06/19/22 09:50 SP (Rec: 06/19/22 10:31 SP [id number]) Gym Equipment Therapeutic Ball green 65 cm tball Exercise Details good slow movement, stable Ball Size/Color 65 cm Body Position Sitting Reps/Duration 10 reps each direction Comments 1. pelvic tilts: f/b/lat 2. april 3. LAQ 4. pull downs TB #1 5. HABD TB #1 cued slow controlled small range mvts- good corrections/ response Therapeutic Exercises Sidelying Exercises open book Side bilateral Reps/Minutes 2x8 Comments cued low trap fac, fluid movement clamshell Side bilateral Resistance AROM x10, TB #1 x10 Equipment Used limited range due to states can get cramping in hip abd Reps/Minutes 2x10 total Comments good feedback response little more hip abd effort, painfree Standing Exercises glut med lift Standing Exercise Name added to HEP Side bilateral Reps/Minutes 5 Comments good feedback response likes muscle effort support. lateral pelvic shift Standing Exercise Name wall side glide- added to HEP Side bilateral Reps/Minutes x5 reps Comments good feedback easy ROM Other Exercises quaderuped UE flex Side bilateral Equipment Used good stability response Reps/Minutes x10 Comments Cued CS nod yes neutral spine, slow UE ext, unable LE ext causes pain yoli Manual Therapy Treatment Soft Tissue Mobilization R lat quad, ITB Mobilization Type Myofascial Release,Rolling Intensity/Depth Superficial Body Position Sidelying Comments manual and discussion ed use rolling pin rolling/rocking. lumbar paraspinals Body Location R MFR ES, Paraspinal, QL Mobilization Type Myofascial Release,Sustained Pressure,Other Intensity/Depth Moderate Body Position Sidelying Comments manual MFR and sustained pressure with hip elevation/ depression and eccentric resisted depressoin w/ FM and ed self racquetball wall Self-Care/Home Management Treatment Education Patient Education Body Mechanics,Home Exercise Program,Joint Protection,Pain Management,Posture Other Education Pt reported has donut pillow that may be a good alternative for uneven surface seated ex uses ball in PT for home carryover. Not safe to have Tball in home with small adolescent at this time. Ed for awareness of limiting carrying adolescent son for back health and make fun with more independent mobility of which she is working on. PT-OP-R Modalities Start: 05/04/22 08:13 Freq: Status: Active Protocol: Document 05/15/22 14:35 AMB (Rec: 05/15/22 15:35 AMB [id number]) Electric Stimulation Electric Stimulation Interferential Current (IFC) Body Location low back Duration (Minutes) 10 Comments prone on pillow PT-OP-T Assessment and Plan Start: 05/04/22 08:13 Freq: Status: Active Protocol: Document 06/19/22 09:50 SP (Rec: 06/19/22 10:31 SP [id number]) Physical Therapy Assessment Goals Three Impairment Postural changes Impairment Fwd head, flattened T/S, increased lordosis, decreased foot arch. Short Term Goal (STG) Pt will be educated in postural changes due to with recommendations for self corrections. STG Duration MET [facility] Goal (LTG) Decrease severity of LE muscle cramp onset during the nighttime with improved posture of LB/pelvis. LTG Duration 05/26/22 Two Impairment Decreased core/pelvic strength Impairment Pt shows no automatic tightening of TA with transfers. Short Term Goal (STG) Pt will be able to demonstrate improved awareness of core stabilization with automatic TA contraction with posturing and transfers onto plinth and with rolling side to side. STG Duration MET Radiology Transcriptionist Goal (LTG) Decrease LBP with improved core/pelvic strength LTG Duration 05/26/22 One Impairment Lacks appropriate self care HEP Short Term Goal (STG) Educate pt in use of cryotherapy for pain management. STG Duration MET Radiology Transcriptionist Goal (LTG) Educate pt in self care HEP ex 's of neck elongation, TA strengthening, and education in proper footwear for pre- and post- postural care. LTG Duration MET Assessment Summary Assessment Pt responded well to manual and ther ex today. Reports good hip abd, core muscular facilitiation and gentle tiring with added resistance to clamshell, added glut med lift and side glide for support lumbar/ SI support and found very helpful today. Pt will keep us posted on next appt with PT wants to continue as long as hasnt gone into labor. Physical Therapy Plan Frequency and Duration Frequency of Treatment 2x/Week Duration of treatment (weeks) 6 Plan of Care Start Date 05/15/22 Plan of Care End Date 06/26/22 Therapeutic Interventions Therapeutic Interventions Home Exercise Program,Joint Mobilizations,Manual Therapy, Patient/Caregiver Education, Self-Care/Home Management,Soft Tissue Mobilization,Taping, Therapeutic Activities, Therapeutic Exercises Modalities Cold Pack/Ice Massage,Electric Stimulation Next Visit Focus/Plan Next Note Type Treatment Note Next Visit Plan Pt has 1 more appt with PT, need update POC, would like to keep POC open for post . Ask response to added glut med lift side glides at wall. Possible Adductor isometrics, 90/90 core press after supine. POC: continue seated therapy ball exercises for core facilitation/stretching, progress quadruped ther ex: UE / LE ext. *Careful/slow progression due to latent response. Improve pelvic positioning, strengthen core and stabilize core/pelvis, improve body mechanics (transfers & ADLs) and address postural changes, and LE neural tension, and educate in self care HEP. Teach post pelvic stabilization. Educate in use of ice for pain management.
--- NOTE | 2022-06-22 11:24 | PT.OTN ---
Current Diagnoses Sacrococcygeal disorders, not elsewhere classified (06/22/22) Encounter for supervision of other normal , second trimester (06/22/22) Physical Therapy Treatment Note PT-OP-A Visit Information Start: 05/04/22 08:13 Freq: Status: Active Protocol: Document 06/22/22 09:09 AMB (Rec: 06/22/22 09:48 AMB [id number]) Out-Patient Physical Therapy Visit Information Visit Information Visit Type Treatment Note Visit Start Time 09:50 Visit Stop Time 10:30 Total Visit Minutes 40 Visit Number 13 Number of HOST/HOSTESS GROUND Visits 0 PT-OP-B Current Condition Start: 05/04/22 08:13 Freq: Status: Active Protocol: Document 05/04/22 11:23 LRN (Rec: 05/04/22 12:39 LRN [id number]) Current Condition History of Current Condition Onset Date 02/2022 Current Complaints Bethany LBP L>R w/nightly LE ms cramps. Having trouble sitting on floor. History of Current Condition Pt is 30 weeks . Experiencing pain in the low back (L>R) radiating up the back when moving rolling from one side to the other in bed. She has cramps every night in the bethany lateral hips, hamstrings, gastocs, ankle ( causing IV) and toes curling ( R foot cramps every night and L foot cramps every other night and sometimes at the same time). She has had nightly L sided back pain since Feb, now on both sides. 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 Developmental History Developmental History Works from home and 1/2 days goes barefoot. Treatment Goals Patient/Caregiver Goals Pt goal is to have less pain. Pt agreeable after discussion to education in posturing and transfers and learning exercises and HEP for self care. Personal Factors Other Personal Factors That May Effect Has 2.5 year old toddler. Therapy/Recovery Works from home and doesn't wear shoes. PT-OP-C Subjective Start: 05/04/22 08:13 Freq: Status: Active Protocol: Document 06/22/22 09:09 AMB (Rec: 06/22/22 09:48 AMB [id number]) OP-PT Subjective Patient Comments Patient Comments Pt reports PT-OP-J Posture/Palpation/Skin Start: 05/04/22 08:13 Freq: Status: Active Protocol: Document 05/04/22 11:23 LRN (Rec: 05/04/22 12:39 LRN [id number]) Posture Evaluation Position Standing Head/C-Spine Posture Forward Head T-Spine Posture Flattened L-Spine Posture Increased Lordosis Foot Arch (L) Medium Arch,(R) Medium Arch Comments Posture Comments C curve of upper T/S with apex on L. Umbilicus not shifted horizontally. Palpation Assessment Location Ischial Tuberosity Palpation Location Ischial Tuberosity in prone on pillow Palpation Details L Ischial tuberosity is low and posterior in prone on pillow. Sacrum Palpation Location Sacral sulcus and SAURABH Palpation Findings Tenderness Palpation Details Sacrum in L rotation Sacral Sulcus elevated on left PSIS Palpation Location L PSIS is low on pillow Palpation Findings Tenderness PT-OP-K Range of Motion Start: 05/04/22 08:13 Freq: Status: Active Protocol: Document 05/04/22 11:23 LRN (Rec: 05/04/22 12:39 LRN [id number]) Lumbar Spine Range of Motion Lumbar Spine Active Degrees Testing Position Standing Flexion 85 Extension 3 Comments Flex is 85 deg's with 40 deg's hip flexion Ext is 0 deg's with 3 deg's hip ext. Tightness with R SB PT-OP-L Special Tests Start: 05/04/22 08:13 Freq: Status: Active Protocol: Document 05/04/22 11:23 LRN (Rec: 05/04/22 12:39 LRN [id number]) Special Tests Lumbar Spine Special Tests Slump Test Results + left, - right Comments No pain with neck ext/knee ext , but pain with added ankle DF . PT-OP-M Strength Start: 05/04/22 08:13 Freq: Status: Active Protocol: Document 05/04/22 11:23 LRN (Rec: 05/04/22 12:39 LRN [id number]) Trunk Strength Trunk Manual Muscle Testing Flexion 2 Poor Hip Strength Hip Manual Muscle Testing Right External Rotation 3 Fair Internal Rotation 3+ Fair+ Left External Rotation 3 Fair Internal Rotation 3+ Fair+ PT-OP-Q Treatments Start: 05/04/22 08:13 Freq: Status: Active Protocol: Document 06/22/22 09:09 AMB (Rec: 06/22/22 09:48 AMB [id number]) Therapeutic Exercises Sidelying Exercises open book Side bilateral Reps/Minutes 2x8 Comments cued low trap fac, fluid movement clamshell Side bilateral Resistance AROM x10, TB #1 x10 Equipment Used limited range due to states can get cramping in hip abd Reps/Minutes 2x10 total Comments good feedback response little more hip abd effort, painfree Standing Exercises Countertop Lat Stretch Standing Exercise Name sink stretch QL- lateral pelvic tilt Side bilateral Equipment Used rail support Reps/Minutes 30 hold x4 reps Comments good feedback QL stretch Other Exercises kegel Other Exercise Name with legs elevated vs quadruped for post quaderuped UE flex Side bilateral Equipment Used good stability response Reps/Minutes x10 Comments Cued CS nod yes neutral spine, slow UE ext, unable LE ext causes pain yoli PT-OP-R Modalities Start: 05/04/22 08:13 Freq: Status: Active Protocol: Document 05/15/22 14:35 AMB (Rec: 05/15/22 15:35 AMB [id number]) Electric Stimulation Electric Stimulation Interferential Current (IFC) Body Location low back Duration (Minutes) 10 Comments prone on pillow PT-OP-T Assessment and Plan Start: 05/04/22 08:13 Freq: Status: Active Protocol: Document 06/22/22 09:09 AMB (Rec: 06/22/22 09:48 AMB [id number]) Physical Therapy Assessment Goals Three Impairment Postural changes Impairment Fwd head, flattened T/S, increased lordosis, decreased foot arch. Short Term Goal (STG) Pt will be educated in postural changes due to with recommendations for self corrections. STG Duration MET Heart Specialist Goal (LTG) Decrease severity of LE muscle cramp onset during the nighttime with improved posture of LB/pelvis. LTG Duration MET Two Impairment Decreased core/pelvic strength Impairment Pt shows no automatic tightening of TA with transfers. Short Term Goal (STG) Pt will be able to demonstrate improved awareness of core stabilization with automatic TA contraction with posturing and transfers onto plinth and with rolling side to side. STG Duration MET Correction Goal (LTG) Decrease LBP with improved core/pelvic strength LTG Duration MET One Impairment Lacks appropriate self care HEP Short Term Goal (STG) Educate pt in use of cryotherapy for pain management. STG Duration MET Heart Specialist Goal (LTG) Educate pt in self care HEP ex 's of neck elongation, TA strengthening, and education in proper footwear for pre- and post- postural care. LTG Duration MET Assessment Summary Assessment Juan is ready to be discharged. Discussed labor and post exercise prescriptions. Start with gentle kegels, can have legs elevated. Encouraged in clams. discussed diastasis recti, taping, binder options. When post pelvic floor is needed and what is normal. Overall pain is better as far a spasms but continues to be very weak. Physical Therapy Plan Frequency and Duration Frequency of Treatment 2x/Week Duration of treatment (weeks) 6 Plan of Care Start Date 05/15/22 Plan of Care End Date 06/26/22 Therapeutic Interventions Therapeutic Interventions Home Exercise Program,Joint Mobilizations,Manual Therapy, Patient/Caregiver Education, Self-Care/Home Management,Soft Tissue Mobilization,Taping, Therapeutic Activities, Therapeutic Exercises Modalities Cold Pack/Ice Massage,Electric Stimulation Next Visit Focus/Plan Next Note Type Treatment Note Next Visit Plan Pt has 1 more appt with PT, need update POC, would like to keep POC open for post . Ask response to added glut med lift side glides at wall. Possible Adductor isometrics, 90/90 core press after supine. POC: continue seated therapy ball exercises for core facilitation/stretching, progress quadruped ther ex: UE / LE ext. *Careful/slow progression due to latent response. Improve pelvic positioning, strengthen core and stabilize core/pelvis, improve body mechanics (transfers & ADLs) and address postural changes, and LE neural tension, and educate in self care HEP. Teach post pelvic stabilization. Educate in use of ice for pain management.
== END 2022-06-23 12:44 | disposition home or self-care (01) ==
LOC: PHYS 09:00
PROVIDERS: Family Provider Family Medicine; PCP Family Medicine; Referring Provider Physician Assistant Medical; Visit Provider Physician Assistant Medical
DX: Z34.82 Encounter for supervision of other normal pregnancy, second trimester (principal); M53.3 Sacrococcygeal disorders, not elsewhere classified
CPT/HCPCS: 97014; 97110; 97140; 97162; 97535; G0283

== ENCOUNTER 2022-06-23 20:12 | Inpatient (IN) | payer OTHER, SELFPAY ==
[2022-06-23 21:30] VITALS: BP 110/69
[2022-06-23 21:34] LABS: Add Manual Diff / Slide Review NO; Basophils Absolute Auto 100 /uL (0-100); Basophils Percent Auto 0.6 % (0-2); Eosinophils Absolute Auto 100 /uL (0-450); Eosinophils Percent Auto 0.7 % (2-4); Hematocrit 34.6 % (36-46); Hemoglobin 11.9 g/dL (12.0-16.0); Lymphocytes Absolute Auto 2100 /uL (1100-4500); Lymphocytes Percent Auto 23.4 % (25-40); Mean Corpuscular HGB Conc 34.3 % (30-36); Mean Corpuscular Hemoglobin 31.7 PG (26-34); Mean Corpuscular Volume 92.4 fL (80-100); Monocytes Absolute Auto 700 /uL (0-900); Monocytes Percent Auto 7.3 % (3-14); Neutrophils Absolute Auto 6200 /uL (1500-7000); Platelet Count 216 X10^3/uL (150-400); Red Blood Cell Count 3.75 X10^6/uL (4.0-5.2); Red Cell Distribution Width 13.7 % (11.6-14.8); White Blood Cell Count 9.1 X10^3/uL (4.5-11.0)
[2022-06-23] MEDS: AMPICILLIN 2,000 MG in SODIUM CHLORIDE 0.9% 100 ML 200 MG IV (21:54)
[2022-06-23] MEDS: LACTATED RINGERS 1,000 ML 100 ML IV (22:00)
[2022-06-24] MEDS: AMPICILLIN 1,000 MG in SODIUM CHLORIDE 0.9% 100 ML 200 MG IV ×2 (02:04→06:08)
--- NOTE | 2022-06-24 03:16 | PM.AN.REGBLK ---
Regional Block Pre-procedure Procedure: Continuous Lumbar Epidural for L&D PSH/Anesthesia history narrative: at 37w2d with SROM requests HAILEY ASA Class: II Labs: Hct 34.6 % (36-46) L 06/23/22 20:50 Plt Count 216 X10^3/uL (150-400) 06/23/22 20:50 Medications: Current Medications Generic Name Dose Route Start Last Admin Trade Name Freq PRN Reason Stop Dose Admin Carboprost Tromethamine 250 mcg 06/23/22 20:38 Carboprost 250 Mcg/Ml Ampul IM Q90M PRN Bleeding Diphenhydramine HCl 25 mg 06/24/22 03:11 Diphenhydramine 50 Mg/Ml Vial IV Q10M PRN Pruritis Lactated Ringer's 1,000 mls @ 100 mls/hr 06/23/22 20:45 06/23/22 22:00 Lactated Ringers IV 100 mls/hr CONT JAK Administration Oxytocin/Lactated Ringer's 30 unit in 500 mls @ 200 mls/hr 06/23/22 20:38 Oxytocin Premix IV CONT PRN Bleeding Protocol Tranexamic Acid 1,000 mg/ 100 mls @ 200 mls/hr 06/23/22 20:38 Sodium Chloride IV NOW PRN Bleeding Ampicillin Sodium 1,000 mg/ 100 mls @ 200 mls/hr 06/24/22 00:15 06/24/22 02:04 Sodium Chloride IV 200 mls/hr Q4H JAK Administration Lactated Ringer's 1,000 mls @ 1,000 mls/hr 06/24/22 03:11 Lactated Ringers IV 06/24/22 04:10 BOLUS ONE FENT 2MCG/ML BUPIV 0.125% EPI 200 mcg in 100 mls @ 11 mls/hr 06/24/22 03:15 Fentanyl/Bupiv/Ns 2mcg/Ml - 0.125% EPIDURAL CONT JAK Methylergonovine Maleate 0.2 mg 06/23/22 20:38 Methylergonovine 0.2 Mg Tablet PO Q6HR PRN Heavy Bleeding Methylergonovine Maleate 0.2 mg 06/23/22 20:38 Methylergonovine 0.2 Mg/Ml Vial IM NOW PRN Bleeding Misoprostol 800 mcg 06/23/22 20:38 Misoprostol 200 Mcg Tablet MA NOW PRN Bleeding Misoprostol 400 mcg 06/23/22 20:38 Misoprostol 200 Mcg Tablet SL NOW PRN Bleeding Nalbuphine HCl 2.5 mg 06/24/22 03:11 Nalbuphine 20 Mg/Ml Ampul IV Q10M PRN Pruritis Naloxone HCl 0.2 mg 06/23/22 20:38 Naloxone 0.4 Mg/Ml Vial IV Q2MIN PRN Opiate Reversal Oxytocin 10 unit 06/23/22 20:38 Oxytocin 10 Unit/Ml Vial IM NOW PRN Bleeding Allergies: Allergies Allergy/AdvReac Type Severity Reaction Status Date / Time bee venom protein (honey bee) Allergy Severe Anaphylaxis Verified 06/23/22 09:04 Sulfa (Sulfonamide Allergy Intermediate Hives Verified 06/23/22 09:04 Antibiotics) Procedure Insertion date: 06/24/22 Insertion time: 02:48 Prep/Local: 1% lidocaine (Chlorhexidine) Interspace: L3/4 Patient position: sitting Needle: 17 gauge Tuohy Loss of resistance with: saline FELIX at (cm): 5 Catheter placed at SKIN (cm): 11 Catheter in SPACE (cm): 6 Sensory level: Bilateral T10 Initial Medications TEST DOSE time: 02:49 BOLUS DOSE time: 02:54 BOLUS DOSE (mL): 5 (3 mL 1% lido 2 mL 1.5% lido with epi) Infusion Initial rate (mL/hr): 11 Post-procedure Anesthesia time START: 02:44
[2022-06-24] MEDS: FENT 2MCG/ML BUPIV 0.125% EPI 200 MCG/100 ML PLAST..BAG 11 MCG EPIDURAL (07:00)
[2022-06-24] MEDS: DOCUSATE 100 MG CAPSULE PO (10:29)
[2022-06-24] MEDS: PRENATAL VIT,CALC/IRON/FOLIC 1 TABLET 1 TAB PO (10:29)
[2022-06-24] MEDS: diphenhydrAMINE 25 MG TABLET PO (10:30)
[2022-06-24] MEDS: DERMOPLAST SPRAY 20% 60 ML 1 SPRAY TOP (10:30)
[2022-06-24] MEDS: IBUPROFEN 600 MG TABLET PO ×3 (11:38→23:33)
[2022-06-24] MEDS: ACETAMINOPHEN 325 MG TABLET 650 MG PO ×3 (11:38→23:32)
--- NOTE | 2022-06-24 21:42 | P.HPOB_ITS ---
OB HPI Date/Time Date of admission: 06/24/22 Date Patient Seen: 06/24/22 Time Patient Seen: 07:20 History of Present Condition Chief complaint: Water Broke SKIP Calculator Estimated Delivery Date Method Current WG Current Estimate 07/13/22 LMP (Uncertain) 37w 2d Other Estimates 07/09/22 Ultrasound #1 37w 6d Estimated Gestational Age (weeks): 37+2 : 2 Para: 1 care: good care, initiated at week # (12), number of visits (10) and pounds weight gain (27) Dating criteria OB: LMP confirmed by 1st trimester US Ultrasounds: normal 1st trimester US and normal mid trimester US Obstetrical complications: none Medical complications OB: none Preadmission Labs Last OB Lab Results: Blood Type O Positive 06/23/22 20:50 Antibody Screen Negative 06/23/22 20:50 Hematocrit 34.6 % (36-46) L 06/23/22 20:50 Hemoglobin 11.9 g/dL (12.0-16.0) L 06/23/22 20:50 Hepatitis B Surface Antigen Negative s/c (NEGATIVE) 12/05/21 11 :30 Hepatitis C Antibody Negative s/c (NEGATIVE) 12/05/21 11:30 Rubella Antibody 13.2 IU/mL (>15) L 12/05/21 11:30 Varicella-Zoster IgG Antibody 825 index (Immune >165) 12/05/21 11:30 Glucose 1 Hour 126 mg/dL (76-139) 04/13/22 13:17 Group B Streptococcus (PCR) Pos for grp b strep H 06/17/22 09:4 2 -: Chlamydia screen: negative, Gonorrhea screen: negative and Urine: positive ([place]) -: PAP smear: Normal Genetic Screens: Cell-free DNA: Normal and Alpha-fetoprotein: Normal External Labs -: Urine: positive ([place]) Prior (ies) Past Pregnancies Del. Date GA/Weeks Labor Lgth Wt Sex Route Outcome Anesthesia Place Delv Breastfeed Preg Comp Name 09/18/19 39.2 8 6 lb 12 oz Male vaginal live - full te rm epidural [place], [place] 12 weeks (pumping) none Pycho (Deary-o) Evaluation Evaluation Baseline heart rate: 130 Variability: Moderate (11-25) monitor accelerations: Present Monitor Decelerations: Absent Contraction Frequency (minutes): 3 Uterine Contraction Intensity: Strong/Firm Status: Category l Dilation (cm): 10 Effacement (%): 100 station: +2 Position of cervix: anterior Consistency: soft [facility] Medical History (Updated 06/23/22 @ 09:29 by Latonia Edouard MD) Anemia (~2001) Cardiac arrhythmia (~2014) Chicken pox (~1992) Decreased sensation Depression (~2019) Eczema (~1987) Fractures (~1996) Migraines (~2005) Ovarian cyst (~2003) Painful menstrual periods (~2002) depression Tinnitus Vaginitis Surgical History Anesthesia H/O cardiac radiofrequency ablation [place] teeth extracted Family History (Updated 11/24/21 @ 14:24 by Raiza Ramey RN) Father Atrial fibrillation History of heart disease Hyperlipidemia Hypertension Mother Osteoporosis Diverticulitis Restless leg syndrome Arthritis Brother Craniostenosis Grandfather History of heart disease Grandmother Accident Stroke Grandfather History of heart disease Grandmother Stroke Social History marital status: number of children: 1 household members: spouse and children lives independently: Yes caregiver/support person: Yes housing: house pets and animals: No education level: master's degree occupational status: employed current occupational exposures/hazards: No special manas needs: No travel history: recent ([place]) seatbelt use: always water heater temp set < 120 deg: Yes working smoke detector in home: Yes fire extinguisher in home: Yes carbon monox detector in home: Yes firearms in home: Yes firearms unloaded and locked: Yes do you feel safe at home: Yes Smoking Status: Never smoker second hand exposure: No alcohol intake: former (~2/week when not ) substance use type: does not use during the past year weight has: remained stable well-balanced diet: rarely or never daily servings fruits/ve-1 caffeine: Yes (1 cup coffee in AM) Type(s) of exercise: none Meds Home Medications and Allergies Home Medications Medication Instructions Recorded Confirmed Type prenat.vits,radha,uyw-xoux-axaty 1 tab PO DAILY 11/24/21 06/24/22 History Allergies Allergy/AdvReac Type Severity Reaction Status Date / Time bee venom protein (honey bee) Allergy Severe Anaphylaxis Verified 06/23/22 09:04 Sulfa (Sulfonamide Allergy Intermediate Hives Verified 06/23/22 09:04 Antibiotics) OB Exam Narrative Exam Narrative: Generally: Comfortable with epidural FH: 37 weeks Ext: No edema Objective Labs 06/23/22 20:50 Labs: Laboratory Results - last 24 hr 06/23/22 20:50 Blood Type O Positive Antibody Screen Negative Assessment and Plan Assessment and Plan Assessment and Plan narrative: Assessment: 32 year old at 37+2 wks gest entering 2nd stage of labor GBS +, received 3 doses of antibiotics Plan: Expectant management to Time Spent with Patient Total time spent with greater than 50% in coordination of care (as documented) at patient's floor/unit and/or counseling patient:: Greater than 35 minutes
--- NOTE | 2022-06-24 21:50 | PM.OBPRVD ---
Labor & Delivery Delivery date: 06/24/22 Intrapartal Events: None Cervical ripening method: none Induction method: none Delivery monitor: external FHT and external uterine Route of delivery: Episiotomy description: None L&D Laceration Description: Perineal - 2nd Degree and Vaginal - 2nd Degree Delivery repair: vicryl and chromic Quantitative Blood Loss: 150 Anesthesia Type: Epidural Complications: None Narrative: Patient complete and pushed for one contraction. At 0721, a live male infant delivered spontaneously over an intact perineum. Nuchal cord x 2 reduced on the perineum. The remainder of the body delivered without difficulty and was placed on mom's abdomen. After the cord stopped pulsing, the cord was double-clamped and cut. Pitocin was given in the IVF's. Cord bloods were obtained. The placenta delivered intact with a 3 vessel cord at 0728. Fundus massaged to firm. A second degree vaginal/perineal laceration was repaired in the usual fashion with 2-0 vicryl and 2-0 Chromic. Hemostasis was achieved. Apgars 9 at one minute and 9 at 5 minutes. Weight: 6# 8 oz. Bottlefeeding. Mom and stable to recovery. Epidural. [place] Baby 1: gender: Male Presentation: vertex Position: Left Occiput Anterior Placenta delivery description: Spontaneous Cord Vessel Description: 3 Vessels, Nuchal Cord (x 2) and Clamped/Cut (after cord stopped pulsing) score (1 min): 9 score (5 min): 9 weight: 6 lb 8.058 oz Plan for aftercare: Routine care
[2022-06-25 06:55] LABS: Hematocrit 28.8 % (36-46); Hemoglobin 9.9 g/dL (12.0-16.0)
[2022-06-25] MEDS: IBUPROFEN 600 MG TABLET PO ×2 (07:28→13:17)
[2022-06-25] MEDS: ACETAMINOPHEN 325 MG TABLET 650 MG PO ×2 (07:28→13:16)
[2022-06-25] MEDS: PRENATAL VIT,CALC/IRON/FOLIC 1 TABLET 1 TAB PO (07:28)
[2022-06-25] MEDS: DOCUSATE 100 MG CAPSULE PO (07:29)
[2022-06-25 09:45] VITALS: BP 102/66; PULSE 70; RESP 16; TEMP 36.7
== END 2022-06-25 13:43 | disposition home or self-care (01) | DRG 807 ==
PROVIDERS: Admitting Provider Obstetrics & Gynecology; Family Provider Family Medicine; PCP Family Medicine; Referring Provider Obstetrics & Gynecology; Visit Provider Obstetrics & Gynecology
DX: O99.824 Streptococcus B carrier state complicating childbirth (principal); Z37.0 Single live birth; Z3A.37 37 weeks gestation of pregnancy; O70.1 Second degree perineal laceration during delivery
CPT/HCPCS: 36415; 59050; 59400; 59409; 85014; 85018; 85025; 86850; 86900; 86901; G0379; J0290

== ENCOUNTER → 2023-12-24 10:13 | Outpatient (CLI) | payer OTHER, SELFPAY ==
[2023-12-24 10:49] LABS: Add Manual Diff / Slide Review NO; Basophils Absolute Auto 0 /uL (0-100); Basophils Percent Auto 0.7 % (0-2); Eosinophils Absolute Auto 0 /uL (0-450); Eosinophils Percent Auto 0.9 % (2-4); Hematocrit 38.6 % (36-46); Hemoglobin 12.9 g/dL (12.0-16.0); Lymphocytes Absolute Auto 1900 /uL (1100-4500); Lymphocytes Percent Auto 32.2 % (25-40); Mean Corpuscular HGB Conc 33.5 % (30-36); Mean Corpuscular Hemoglobin 31.7 PG (26-34); Mean Corpuscular Volume 94.6 fL (80-100); Monocytes Absolute Auto 400 /uL (0-900); Monocytes Percent Auto 7.3 % (3-14); Neutrophils Absolute Auto 3400 /uL (1500-7000); Neutrophils Percent Auto 58.9 % (50-75); Platelet Count 254 X10^3/uL (150-400); Red Blood Cell Count 4.08 X10^6/uL (4.0-5.2); Red Cell Distribution Width 13.7 % (11.6-14.8); White Blood Cell Count 5.8 X10^3/uL (4.5-11.0)
[2023-12-24 11:04] LABS: HEMOLYSIS < 15 (0-50); Iron 94 ug/dL (37-170)
[2023-12-24 11:08] LABS: C-Reactive Protein Quant < 0.5 mg/dL (<1.0)
[2023-12-24 11:15] LABS: Percent Iron Saturation 24 % (15-50); Total Iron Binding Capacity 387 ug/dL (265-497); Transferrin 312 mg/dL (206-381)
[2023-12-24 11:36] LABS: TSH w/ Reflex to FT4 0.68 uIU/mL (0.47-4.68)
[2023-12-24 11:41] LABS: Ferritin 50 ng/mL (6-137)
== END ==
PROVIDERS: Family Provider Family Medicine; PCP Student in an Organized Health Care Education/Training Program; Referring Provider Student in an Organized Health Care Education/Training Program; Visit Provider Student in an Organized Health Care Education/Training Program
DX: R61 Generalized hyperhidrosis (principal); G43.009 Migraine without aura, not intractable, without status migrainosus; B37.9 Candidiasis, unspecified
CPT/HCPCS: 36415; 82728; 83540; 83550; 84443; 85025; 86140

== ENCOUNTER → 2024-02-01 10:01 | Outpatient (CLI) | payer OTHER, SELFPAY | PROVIDERS: Family Provider Family Medicine; PCP Student in an Organized Health Care Education/Training Program; Referring Provider Physician Assistant; Visit Provider Physician Assistant | DX: N94.89 Other specified conditions associated with female genital organs and menstrual cycle (principal) | CPT/HCPCS: 87210 ==

== ENCOUNTER → 2024-03-31 13:10 | Outpatient (CLI) | payer OTHER, SELFPAY ==
--- NOTE | 2024-03-31 13:11 | DI.RAD.S_ITS ---
PROCEDURE: XR CHEST 2V INDICATIONS: Unexplained night sweats TECHNIQUE: 2 views of the chest were acquired. COMPARISON: None. FINDINGS: Surgical changes and devices: None. Lungs and pleura: Lungs are clear. No pleural effusions or pneumothorax. Mediastinum: Mediastinal contours are normal. Heart size is normal. Bones and chest wall: No suspicious bony abnormalities. Soft tissues appear unremarkable. IMPRESSION: No acute cardiopulmonary abnormality is seen. Dictated by: Jayy Luther M.D. on 03/31/2024 at 13:39 Approved by: Jayy Luther M.D. on 03/31/2024 at 13:39
[2024-03-31 15:13] LABS: Follicle Stimulating Hormone < 0.66 mIU/mL; Prolactin 9.1 ng/mL (3.0-18.6)
[2024-04-03 15:01] LABS: HIV 1 & 2 Ab/Ag 4th Gen Combo NEGATIVE (NEGATIVE)
[2024-04-04 12:36] LABS: Estrogen 61 pg/mL (.)
== END ==
PROVIDERS: Family Provider Family Medicine; PCP Student in an Organized Health Care Education/Training Program; Referring Provider Student in an Organized Health Care Education/Training Program; Visit Provider Student in an Organized Health Care Education/Training Program
DX: R61 Generalized hyperhidrosis (principal); R23.2 Flushing
CPT/HCPCS: 36415; 71046; 82672; 83001; 84146; 87389

== ENCOUNTER → 2024-04-10 07:22 | Outpatient (CLI) | payer OTHER, SELFPAY ==
--- NOTE | 2024-04-10 07:22 | DI.US.S_ITS ---
PROCEDURE: US PELVIC COMPLETE INDICATIONS: abnormal uterine bleeding TECHNIQUE: Real-time scanning was performed of the pelvic organs, with image documentation. Additional endovaginal scanning was necessary due to incomplete visualization of the adnexal and endometrial structures by transabdominal scanning. COMPARISON: None. FINDINGS: Uterus: Uterus is anteverted and normal in size at 7.1 x 3.6 x 4.9 cm. The myometrium is heterogeneous without dominant mass. The endometrium measures seven mm combined thickness. Normal vascularity in the uterus. Trace amount of physiologic fluid in the cul-de-sac. Ovaries: The right ovary measures 1.4 x 1.1 x 2.2 cm, with a calculated ovarian volume of 1.8 cc. The left ovary measures 1.0 x 1.2 x 2.2 cm, with a calculated ovarian volume of 1.4 cc. The ovaries have a normal sonographic appearance. Less than 12 follicles can be seen in each ovary. No adnexal masses are seen. Other: No pathologic free abdominal or pelvic fluid. IMPRESSION: Mildly heterogeneous, but normal size uterus. Normal ovaries. We strive to produce accurate, complete, and clear reports of imaging services. To assist us in improving patient care, this report was composed using standard report templates and voice recognition software. Therefore, it may contain abnormal punctuation, insertions and/or omissions. Occasional wrong-word or sound-alike substitutions may occur. Though we review the report and make efforts to correct it, we do recommend that the report be read carefully in proper context to recognize any text inaccuracies. Dictated by: Felecia Summers M.D. on 04/10/2024 at 9:37 Approved by: Felecia Summers M.D. on 04/10/2024 at 9:39
== END ==
PROVIDERS: Family Provider Family Medicine; PCP Student in an Organized Health Care Education/Training Program; Referring Provider Student in an Organized Health Care Education/Training Program; Visit Provider Student in an Organized Health Care Education/Training Program
DX: N93.9 Abnormal uterine and vaginal bleeding, unspecified (principal)
CPT/HCPCS: 76830; 76856

== ENCOUNTER → 2024-04-25 19:36 | Outpatient (CLI) | payer OTHER, SELFPAY ==
--- NOTE | 2024-04-25 19:38 | DI.MRI.S_ITS ---
PROCEDURE: MR PELVIS WO/W CON INDICATIONS: heterogenous uterus on US TECHNIQUE: Coronal HASTE, sagittal breath-hold T2 FSE; axial T1 FSE with and without fat saturation through the pelvis. Optional long- and short-axis uterine nonbreath-hold T2 FSE through the uterus. Sagittal or axial dynamic VIBE during administration of contrast. Post-contrast axial or coronal VIBE/2-D FLASH with fat saturation from the iliac crests to the symphysis. Optional diffusion weighted imaging and ADC may be performed. 20 cc ProHance IV contrast. COMPARISON: [facility], US, US PELVIC COMPLETE, 04/10/2024, 7:44. FINDINGS: Image quality: Excellent. Uterus: Uterus is anteverted and normal in size. Endometrium is normal in thickness measuring 5 mm. Junctional zone is normal in thickness at 12 mm or less. The myometrium is somewhat heterogeneous. There are somewhat prominent myometrial vessels. No fibroids are appreciated. Adnexa: No suspicious cystic or solid lesions. Urinary system: Bladder wall is normal in thickness. Distal ureters are non distended. Urethra appears normal in morphology. Nodes and vessels: No pelvic or inguinal adenopathy by size criteria. Iliac vessels are normal in size. Bowel and peritoneum: No pathologic free pelvic fluid. Inferior colon and small bowel loops are normal in caliber. Soft tissues: No inguinal hernias. No findings of pelvic floor incompetence in the absence of provocation. Bones: Marrow demonstrates normal overall signal. IMPRESSION: 1. Endometrium measures 5 mm. 2. No thickening of the junctional zone to suggest uterine adenomyosis. The myometrium appears somewhat heterogeneous which could be due to prominent myometrial vessels. 3. No significant ovarian cyst. Dictated by: Peter Joel M.D. on 04/26/2024 at 15:15 Approved by: Peter Joel M.D. on 04/26/2024 at 15:26
== END ==
LOC: MRI 19:37
PROVIDERS: Family Provider Family Medicine; PCP Student in an Organized Health Care Education/Training Program; Referring Provider Student in an Organized Health Care Education/Training Program; Visit Provider Student in an Organized Health Care Education/Training Program
DX: N93.9 Abnormal uterine and vaginal bleeding, unspecified (principal)
CPT/HCPCS: 72197; A9579

== ENCOUNTER 2024-08-01 19:31 | Emergency (ER) | payer OTHER, SELFPAY ==
[2024-08-01 20:01] VITALS: BP 132/71; PULSE 77; RESP 16; TEMP 37.2; O2SAT 100; BMI 20.7
--- NOTE | 2024-08-01 20:06 | DI.RAD.S_ITS ---
PROCEDURE: XR CHEST 1V INDICATIONS: Chest Pain TECHNIQUE: One view of the chest was acquired. COMPARISON: [facility], CR, XR CHEST 2V, 03/31/2024, 13:20. FINDINGS: Surgical changes and devices: None. Lungs and pleura: Lungs are clear. No pleural effusions or pneumothorax. Mediastinum: Mediastinal contours appear normal. Heart size is normal. Bones and chest wall: No suspicious bony lesions. Overlying soft tissues appear unremarkable. IMPRESSION: No acute cardiopulmonary abnormality is seen. Dictated by: Felecia Summers M.D. on 08/01/2024 at 22:00 Approved by: Felecia Summers M.D. on 08/01/2024 at 22:00
--- NOTE | 2024-08-01 20:06 | EKG_ITS ---
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
--- NOTE | 2024-08-01 20:29 | ED_ITS ---
HPI - Chest Pain General Chief Complaint: Chest Pain Stated Complaint: migraine since wednesday Time Seen by Provider: 08/01/24 20:29 Source: patient Mode of arrival: Ambulatory Limitations: no limitations History of Present Illness HPI narrative: 34-year-old female complains of right-sided retro-orbital headache since yesterday, history of recurrent headaches usually behind either eye. Has been prescribed rizatriptan in the past for headaches, not tried with this particular headache. Initially behind right eye but then global today. No neck pain. No photophobia. No focal weakness to face arm or leg. No focal numbness to face arm or leg. She also had brief episode of chest discomfort earlier today, no history of known coronary artery disease, has had SVT at some point in the past. No associated nausea or vomiting, no photophobia. No neck discomfort. Related Data Home Medications ?Medication ?Instructions ?Recorded ?Confirmed acetaminophen 325 mg tablet 325 mg PO DAILY 12/24/23 0 05/26/24 (Tylenol) Previous Rx's ?Medication ?Instructions ?Recorded ondansetron 4 mg disintegrating 4 mg PO Q8H PRN nausea and 09/17/22 tablet vomiting #30 tabs rizatriptan 5 mg disintegrating See Rx Instructions PO .COMPLEX 09/17/22 tablet #12 tabs levonorgestrel 0.15 mg-ethinyl 1 tab PO DAILY #84 tabs 12/24/23 estradiol 0.03 mg tablet fluconazole 150 mg tablet 150 mg PO Q3D 2 doses #2 tab s 02/01/24 Allergies Allergy/AdvReac Type Severity Reaction Status Date / Time bee venom protein (honey bee) Allergy Severe Anaphylaxis Verified 08/01/24 20:01 Sulfa (Sulfonamide Allergy Intermediate Hives Verified 08/01/24 20:01 Antibiotics) Patient History Medical History (Updated 08/02/24 @ 01:37 by Reza Aleman MD) History of dysmenorrhea anemia depression Vaginitis Tinnitus Decreased sensation Eczema (~1987) Depression (~2019) Migraines (~2005) Fractures (~1996) Chicken pox (~1992) Anemia (~2001) Painful menstrual periods (~2002) Ovarian cyst (~2003) Cardiac arrhythmia (~2014) Surgical History [place] teeth extracted H/O cardiac radiofrequency ablation Anesthesia Family History (Updated 11/24/21 @ 14:24 by Raiza Ramey RN) Father Atrial fibrillation History of heart disease Hyperlipidemia Hypertension Mother Osteoporosis Diverticulitis Restless leg syndrome Arthritis Brother Craniostenosis Grandfather History of heart disease Grandmother Accident Stroke Grandfather History of heart disease Grandmother Stroke Social History marital status: number of children: 1 household members: spouse and children lives independently: Yes caregiver/support person: Yes housing: house pets and animals: No education level: master's degree occupational status: employed current occupational exposures/hazards: No special manas needs: No travel history: recent ([place]) seatbelt use: always water heater temp set < 120 deg: Yes working smoke detector in home: Yes fire extinguisher in home: Yes carbon monox detector in home: Yes firearms in home: Yes firearms unloaded and locked: Yes do you feel safe at home: Yes Smoking Status: Never smoker second hand exposure: No alcohol intake: former (~2/week when not ) substance use type: does not use during the past year weight has: remained stable well-balanced diet: rarely or never daily servings fruits/ve-1 caffeine: Yes (1 cup coffee in AM) Type(s) of exercise: none Smoking Status: Never smoker Exam Narrative Exam Narrative: GENERAL: Well-developed patient, in mild distress. HEAD: Atraumatic. Normocephalic. EYES: Pupils equal round and reactive. Extraocular motions intact. No scleral icterus. No injection or drainage. ENT: Nose without bleeding, purulent drainage. Throat without erythema, tonsillar hypertrophy or exudate. Airway patent. NECK: Trachea midline. Non tender CARDIOVASCULAR: Regular rate and rhythm without murmurs, gallops, or rubs. RESPIRATORY: Clear to auscultation. Breath sounds equal bilaterally. No wheezes, rales, or rhonchi. GASTROINTESTINAL: Abdomen soft, non-tender, nondistended. EXTREMITIES: No edema or joint tenderness. BACK: Nontender without deformity or crepitance. No flank tenderness. NEURO: AOx3. Motor functions grossly nonfocal. SKIN: No rash or erythema of visible areas Initial Vital Signs Initial Vital Signs: Vital Signs Temperature 98.9 F 08/01/24 20:01 Pulse Rate 77 08/01/24 20:01 Respiratory Rate 16 08/01/24 20:01 Blood Pressure 132/71 08/01/24 20:01 Pulse Oximetry 100 08/01/24 20:01 Oxygen Delivery Method Room Air 08/01/24 20:01 Course Orders Ordered: ED Orders 08/01/24 20:06 XR chest 1V Stat EKG-12 Lead Stat 08/01/24 20:21 Complete Blood Count AUTO DIFF Stat Comprehensive Metabolic Panel Stat Lipase Stat Magnesium Stat NT-proBNP (BNP-Adult 18+) Stat PTT Partial Thromboplastin Bright Stat Prothrombin Time INR Stat Troponin & CK Cardiac Panel Stat 08/01/24 22:34 Troponin I Stat Discontinued Medications Aspirin (Aspirin 81 Mg Chew Tab) 324 mg PO NOW ONE Stop: 08/01/24 20:07 Last Admin: 08/01/24 23:17 Dose: Not Given Documented By: YASH Diphenhydramine HCl (Diphenhydramine 50 Mg/Ml Vial) 50 mg IV NOW ONE Stop: 08/01/24 20:32 Last Admin: 08/01/24 23:00 Dose: 50 mg Documented By: YASH Sodium Chloride (Normal Saline 0.9%) 1,000 mls @ 1,000 mls/hr IV BOLUS ONE Stop: 08/01/24 21:31 Last Infusion: 08/01/24 23:40 Dose: Infused Documented By: Admin: 08/01/24 23:01 Dose: 1,000 mls/hr Documented By: YASH Ketorolac Tromethamine (Ketorolac 30 Mg/Ml Vial) 15 mg IV NOW ONE Stop: 08/01/24 20:32 Last Admin: 08/01/24 22:59 Dose: 15 mg Documented By: YASH Prochlorperazine (Prochlorperazine 10 Mg/2 Ml Vial) 10 mg IV NOW ONE Stop: 08/01/24 20:32 Last Admin: 08/01/24 22:59 Dose: 10 mg Documented By: YASH Vital Signs Vital signs: Vital Signs - 8 hr 08/01/24 20:01 08/01/24 22:50 08/01/24 22:51 Temperature 98.9 F Pulse Rate 77 56 L Respiratory Rate 16 15 Blood Pressure 132/71 128/70 Pulse Oximetry 100 100 Oxygen Delivery Method Room Air 08/01/24 22:51 08/01/24 23:00 08/01/24 23:00 Temperature Pulse Rate 56 L 52 L Respiratory Rate 15 19 Blood Pressure 119/71 Pulse Oximetry 100 98 Oxygen Delivery Method MDM - Chest Pain Lab Data Attestation: I reviewed the patient's lab results. Lab results narrative: White blood cell count 5000, hemoglobin 12, platelets adequate. Glucose 115. Normal renal function. Normal electrolytes. Normal serum CO2. Liver functions and lipase normal. Troponin negative x2 interval studies. BNP not elevated. 08/01/24 20:21 08/01/24 20:21 Labs: Lab Results 08/01/24 08/01/24 Range/Units 20:21 22:34 WBC 5.0 (4.5-11.0) X10^3/uL RBC 3.78 L (4.0-5.2) X10^6/uL Hgb 12.0 (12.0-16.0) g/dL Hct 35.6 L (36-46) % MCV 94.1 (80-100) fL MCH 31.7 (26-34) PG MCHC 33.7 (30-36) % RDW 13.1 (11.6-14.8) % Plt Count 225 (150-400) X10^3/uL Neut % (Auto) 48.2 L (50-75) % Lymph % (Auto) 42.9 H (25-40) % [place] % (Auto) 6.6 (3-14) % Eos % (Auto) 1.3 L (2-4) % Baso % (Auto) 1.0 (0-2) % Neut # (Auto) 2400 (8618-6149) /uL Lymph # (Auto) 2200 (8531-4541) /uL [place] # (Auto) 300 (0-900) /uL Eos # (Auto) 100 (0-450) /uL Baso # (Auto) 0 (0-100) /uL PT 12.3 (9.4-12.5) SECONDS INR 1.1 (0.9-1.3) APTT 34 (25.1-36.5) SECONDS Sodium 138 (137-145) mmol/L Potassium 3.7 (3.4-5.1) mmol/L Chloride 107 (98-107) mmol/L Carbon Dioxide 27 (22-32) mmol/L BUN 7 (7-17) mg/dL Creatinine 0.76 (0.52-1.04) mg/dL Estimated GFR > 60 (>60) mL/min BUN/Creatinine Ratio 9.2 (6-22) Glucose 115 H (70-99) mg/dL Calcium 9.1 (8.4-10.2) mg/dL Magnesium 2.0 (1.6-2.3) mg/dL Total Bilirubin 0.4 (0.2-1.3) mg/dL AST 24 (14-36) IU/L ALT 16 (<35) IU/L Alkaline Phosphatase 52 (38-126) U/L Total Creatine Kinase 77 (30-135) U/L Troponin I < 0.012 < 0.012 (0.01-0.034) ng/mL NT-Pro-B Natriuret Pep 179 H (<125) pg/mL Total Protein 6.9 (6.3-8.2) g/dL Albumin 4.1 (3.5-5.0) g/dL Globulin 2.8 (1.7-4.1) g/dL Albumin/Globulin Ratio 1.5 (1.0-2.8) Lipase 49 (23-300) U/L Imaging Data Chest x-ray: Radiologist's Impression: [address] [address] XRay Report Signed Patient: Juan Walsh MR#: [id number] : 1990 Acct:[id number] Age/Sex: 34 / F Date of Service: 08/01/24 Loc: ED Accession Number: [id number] Procedure: XR chest 1V Ordering Provider: Reza Aleman MD PROCEDURE: XR CHEST 1V INDICATIONS: Chest Pain TECHNIQUE: One view of the chest was acquired. COMPARISON: [facility], , XR CHEST 2V, 03/31/2024, 13:20. FINDINGS: Surgical changes and devices: None. Lungs and pleura: Lungs are clear. No pleural effusions or pneumothorax. Mediastinum: Mediastinal contours appear normal. Heart size is normal. Bones and chest wall: No suspicious bony lesions. Overlying soft tissues appear unremarkable. IMPRESSION: No acute cardiopulmonary abnormality is seen. Dictated by: Felecia Summers M.D. on 08/01/2024 at 22:00 Approved by: Feelcia Summers M.D. on 08/01/2024 at 22:00 ECG Data Attestation: I personally reviewed and interpreted this ECG as follows: Interpretation: Normal sinus rhythm with rate of 63, no obvious ST segment elevation or depression changes. CT 152, QRS 94, QTC 392. MDM Narrative Medical decision making narrative: 34-year-old female with recurrent headaches, right-sided retro-orbital headache typical, but then became more global which is not typical. She also had brief episode of self-limited chest pain earlier today. You have SVT in the past, this did not feel that way. No focal numbness or weakness. Lab data: White blood cell count 5000, hemoglobin 12, platelets adequate. Glucose 115. Normal renal function. Normal electrolytes. Normal serum CO2. Liver functions and lipase normal. Troponin negative x2 interval studies. BNP not elevated. Chest x-ray no acute findings. See radiology report. Patient given IV Compazine and Benadryl and fluids. Headache symptoms resolved entirely. She feels better and would like to go home. EKG and blood testing not suggestive of heart attack, chest x-ray negative. Discharged home. Follow up with PCP advised. Return precautions discussed. Discharge Plan Departure Patient Disposition: Home Clinical Impression: Migraine headache, Chest pain Activity Restrictions/Additional Instructions: History of migraine headaches usually behind 1 or the other eyes, 2 days' duration of right-sided typical retro-orbital headache pain, then seemed more global which he is unusual for your headache pattern. Also brief episode of self-limited chest discomfort of unclear cause. Chest x-ray and EKG and blood testing not suggestive of any acute chest process at this time. IV Compazine with Benadryl and fluids given, symptoms all resolved. You felt better and wanted to be discharged home. Follow up with your regular doctor as planned. Return to this/nearest emergency department for any change worsening symptoms or concerns prior. Prescriptions: No Action acetaminophen [Tylenol] 325 mg tablet 325 mg PO DAILY levonorgestrel-ethinyl estrad 0.15-0.03 mg tablet 1 tab PO DAILY Qty: 84 5RF fluconazole 150 mg tablet 150 mg PO Q3D Qty: 2 0RF rizatriptan 5 mg tablet,disintegrating See Rx Instructions PO .COMPLEX Qty: 12 1RF Rx Instructions: take 1 tablet at onset of headache; if no relief, may repeat 1 tablet after at least 2 hrs PO. Two max per attack. ondansetron 4 mg tablet,disintegrating 4 mg PO Q8H PRN (Reason: nausea and vomiting) Qty: 30 1RF Referrals: Dorcas Gamboa MD [Primary Care Provider, Family Practice] Stand Alone Forms: Patient Portal/API
[2024-08-01 20:31] LABS: Add Manual Diff / Slide Review NO; Basophils Absolute Auto 0 /uL (0-100); Eosinophils Absolute Auto 100 /uL (0-450); Eosinophils Percent Auto 1.3 % (2-4); Hematocrit 35.6 % (36-46); Lymphocytes Absolute Auto 2200 /uL (1100-4500); Lymphocytes Percent Auto 42.9 % (25-40); Mean Corpuscular HGB Conc 33.7 % (30-36); Mean Corpuscular Hemoglobin 31.7 PG (26-34); Mean Corpuscular Volume 94.1 fL (80-100); Monocytes Absolute Auto 300 /uL (0-900); Monocytes Percent Auto 6.6 % (3-14); Neutrophils Absolute Auto 2400 /uL (1500-7000); Neutrophils Percent Auto 48.2 % (50-75); Platelet Count 225 X10^3/uL (150-400); Red Blood Cell Count 3.78 X10^6/uL (4.0-5.2); Red Cell Distribution Width 13.1 % (11.6-14.8)
[2024-08-01 20:44] LABS: INR 1.1 (0.9-1.3); Prothrombin Time 12.3 SECONDS (9.4-12.5)
[2024-08-01 20:47] LABS: PTT Partial Thromboplastin Tim 34 SECONDS (25.1-36.5)
[2024-08-01 20:49] LABS: Alanine Aminotransferase 16 IU/L (<35); Albumin 4.1 g/dL (3.5-5.0); Albumin Globulin Ratio 1.5 (1.0-2.8); Alkaline Phosphatase 52 U/L (38-126); Aspartate Aminotransferase 24 IU/L (14-36); BUN Creatinine Ratio 9.2 (6-22); Bilirubin Total 0.4 mg/dL (0.2-1.3); Blood Urea Nitrogen 7 mg/dL (7-17); Calcium 9.1 mg/dL (8.4-10.2); Carbon Dioxide 27 mmol/L (22-32); Chloride 107 mmol/L (98-107); Creatine Kinase 77 U/L (30-135); Estimated Glomerular Filt Rate > 60 mL/min (>60); Globulin 2.8 g/dL (1.7-4.1); Glucose 115 mg/dL (70-99); HEMOLYSIS < 15 (0-50); Lipase 49 U/L (23-300); Potassium 3.7 mmol/L (3.4-5.1); Sodium 138 mmol/L (137-145); Total Protein 6.9 g/dL (6.3-8.2)
[2024-08-01 21:01] LABS: NT-proBNP (BNP-Adult 18+) 179 pg/mL (<125); Troponin I < 0.012 ng/mL (0.01-0.034)
[2024-08-01 22:50] VITALS: PULSE 56; RESP 15; O2SAT 100
[2024-08-01 22:51] VITALS: BP 128/70; PULSE 56; RESP 15; O2SAT 100
[2024-08-01] MEDS: KETOROLAC 30 MG/ML VIAL 15 MG IV (22:59)
[2024-08-01] MEDS: PROCHLORPERAZINE 10 MG/2 ML VIAL IV (22:59)
[2024-08-01 23:00] VITALS: BP 119/71; PULSE 52; RESP 19; O2SAT 98
[2024-08-01] MEDS: diphenhydrAMINE 50 MG/ML VIAL IV (23:00)
[2024-08-01] MEDS: SODIUM CHLORIDE 0.9% 1,000 ML 1000 ML IV (23:01)
[2024-08-01 23:04] LABS: Troponin I < 0.012 ng/mL (0.01-0.034)
--- NOTE | 2024-08-02 01:43 | PC.NURSE ---
Pt treated for headache with good relief. no cardiac issues during ED visit.
== END 2024-08-02 01:45 | disposition home or self-care (01) ==
PROVIDERS: Emergency Provider Emergency Medicine; Family Provider Family Medicine; PCP Student in an Organized Health Care Education/Training Program
DX: G43.909 Migraine, unspecified, not intractable, without status migrainosus (principal); R07.9 Chest pain, unspecified
CPT/HCPCS: 36415; 71045; 80053; 82550; 83690; 83735; 83880; 84484; 85025; 85610; 85730; 93005; 96361; 96374; 96375; 99284; J0780; J1200; J1885